=== PATIENT | female | born 1960 | race Caucasian/White ===

== ENCOUNTER 2023-02-28 08:56 | Outpatient (CLI) | payer OTHER, SELFPAY ==
--- NOTE | ~2023-02-28 | XR_ITS ---
EXAMINATION: XR chest 2V 02/28/2023 09:15 INDICATION: Cough PROCEDURE: 2 view chest COMPARISON: 12/05/2013 FINDINGS: The lungs are clear. The cardiomediastinal silhouette is within normal limits. There are no pleural effusions. There is no pneumothorax suspected. There is scoliosis. There are cholecystec sheldon clips. IMPRESSION: 1: NO ACUTE CARDIOPULMONARY DISEASE. Reviewed, dictated and finalized at location B. CAL LIAISON
--- NOTE | ~2023-02-28 | MM_ITS ---
EXAMINATION: MM screening queenie BI w letha HISTORY: Screening mammogram TECHNIQUE: Craniocaudal and mediolateral oblique 3-D tomosynthesis images were obtained and synthetic 2-D images were generated. CAD analysis was submitted and interpreted. COMPARISON: No prior mammogram is available for comparison at this institution. BREAST PARENCHYMAL COMPOSITION: The breasts are almost entirely fatty. FINDINGS: An intramammary lymph node is noted in the upper outer quadrant of the right breast. No jackelyn picious mass, calcification, or architectural distortion are identified in either breast to suggest m alignancy. IMPRESSION: 1. No mammographic evidence of malignancy. 2. Recommend routine screening mammography in one year. BI-RADS Category 2: Benign finding(s). Reviewed, dictated and finalized at location A. ER ENAMELING
== END 2023-02-28 08:57 | disposition home or self-care (01) ==
PROVIDERS: PCP Emergency Medicine; Visit Provider Emergency Medicine
DX: Z12.31 Encounter for screening mammogram for malignant neoplasm of breast (principal); R05.9 Cough, unspecified
CPT/HCPCS: 71046; 77063; 77067

== ENCOUNTER 2023-10-05 16:00 | Emergency (ER) | payer OTHER, SELFPAY ==
--- NOTE | ~2023-10-05 | XR_ITS ---
EXAMINATION: XR toe 5th LT min 2V DATE: 10/05/2023 16:40 INDICATION: Left fifth toe injury. TECHNIQUE: 4 views of left fifth toe were obtained. COMPARISON: None. FINDINGS: Alignment is normal. There is ankylosis of fifth middle and distal phalanges. There is a ch ip fracture of plantar base of fifth middle phalanx. Joint spaces are normal. IMPRESSION: 1. Chip fracture of the plantar base of fifth middle phalanx. Reviewed, dictated and finalized at location A.
[2023-10-05 16:19] VITALS: BP 148/83; PULSE 72; RESP 16; TEMP 36.7; O2SAT 99
--- NOTE | 2023-10-05 16:19 | ED.LOWEXIN ---
HPI - Extremity Injury (Lower) General Chief Complaint: Extremity Injury, Lower Stated Complaint: lt foot toe injury Time Seen by Provider: 10/05/23 16:25 Source: patient and RN notes reviewed Mode of arrival: ambulatory Limitations: no limitations History of Present Illness HPI Narrative: 8-year-old female presents concern for injury to the 5th digit of her right foot. Reports today works she dropped a case of water on the foot. She reports pain at the 5th digit and extending below the 5th digit. She reports pain at rest, worse pain with weight-bearing. Reports difficulty bending MD complaint: foot injury Related Data Home Medications Medication Instructions Recorded Confirmed amlodipine 10 mg tablet 10 mg PO DAILY 10/05/23 10/05/23 hydrochlorothiazide 25 mg tablet 25 mg PO DAILY 10/05/23 10/05/23 paroxetine HCl 20 mg tablet 20 mg PO DAILY 10/05/23 10/05/23 rosuvastatin 5 mg tablet 5 mg PO HS 10/05/23 10/05/23 Allergies Allergy/AdvReac Type Severity Reaction Status Date / Time No Known Allergies Allergy Verified 10/05/23 16:15 Review of Systems Review of Systems: CONSTITUTIONAL: Denies malaise, chills, sweats, or fever. SKIN: Denies rash or itching, open skin, laceration, abrasion, redness, warmth, swelling. MUSCULOSKELETAL: Reports pain and bruising in the 5th digit of the left foot NEUROLOGIC: Denies numbness, weakness All systems reviewed & are unremarkable except as noted in HPI and below PMFSH Comments At time of signature, agree with nursing past medical, surgical, social and family history. There is no relevant family history pertinent to the presenting complaint Exam Narrative: GENERAL: Well-appearing, well-nourished, and in no acute distress. HEAD: Normocephalic, atraumatic. EYES: PERRLA, conjunctivae clear NECK: Supple. CHEST: Speaks in full sentences. No respiratory distress. HEART: Regular rate and rhythm. Normal and equal peripheral pulses. EXTREMITIES: 5th digit of left foot has gross normal strength and sensation, limited range of motion. No edema. Ecchymosis noted at the base of the digit. Normal sensation with sensitivity to light touch and pain. General digit tenderness. No open wounds, no skin tenting, no devitalized tissue or atrophy, no trophic changes, no obvious deformity, alignment normal, nearby joints and structures intact. Distal pulses palpable and equal bilaterally, skin warm, dry, pink. Capillary refill less than 3 seconds. SKIN: Warm, dry, no rash. NEURO: Alert and oriented x3. PSYCH: Normal mood and affect Course Course Emergency Course: Patient is aware of diagnosis, understands and agrees to treatment plan. Anticipatory guidance given. Patient agrees to follow-up as directed and is aware of reasons to seek care at the emergency department. Portions of this record may have been created with voice recognition software Level of Care: Express Care Visit Vital Signs Vital signs: Reviewed. MDM - Extremity Injury (Lower) MDM Narrative Medical decision making narrative: Patients injury and pain is consistent with musculoskeletal etiology. No signs of neurological or vascular compromise on exam. Compartments and tissues are soft without signs of compartment syndrome. Pain is felt appropriate for further evaluation on an outpatient basis. Imaging Data My impression: Images reviewed, interpreted by radiologist, agree, see report. Radiologist's impression: EXAMINATION: XR toe 5th LT min 2V DATE: 10/05/2023 16:40 INDICATION: Left fifth toe injury. TECHNIQUE: 4 views of left fifth toe were obtained. COMPARISON: None. FINDINGS: Alignment is normal. There is ankylosis of fifth middle and distal phalanges. There is a chip fracture of plantar base of fifth middle phalanx. Joint spaces are normal. IMPRESSION: 1. Chip fracture of the plantar base of fifth middle phalanx. Critical Care Time Critical Care Time Critical Care Time: No Discharge Plan D
== END 2023-10-05 17:05 | disposition home or self-care (01) ==
PROVIDERS: Emergency Provider Nurse Practitioner; PCP Emergency Medicine
DX: S92.522A Displaced fracture of middle phalanx of left lesser toe(s), initial encounter for closed fracture (principal); W20.8XXA Other cause of strike by thrown, projected or falling object, initial encounter; Y99.0 Civilian activity done for income or pay; E78.00 Pure hypercholesterolemia, unspecified; I10 Essential (primary) hypertension; F41.9 Anxiety disorder, unspecified; F32.A Depression, unspecified
CPT/HCPCS: 73660; 99214; G0463

== ENCOUNTER 2024-03-19 13:45 | Outpatient (CLI) | payer OTHER, SELFPAY ==
--- NOTE | ~2024-03-19 | XR_ITS ---
AP view of the pelvis and AP and lateral views of the bilateral hips Clinical history: Pain Findings: No acute fracture or dislocation is seen. Probable chronic fracture fragment versus heterot opic ossification at the superior aspect of the right greater trochanter. Osseous alignment is anatom ic. Bilateral hip and SI joint spaces are preserved. Soft tissues are unremarkable. Impression: No acute abnormality. Chronic fracture fragment versus heterotopic ossification at the superior aspect of the right greater trochanter. Reviewed, dictated and finalized at location . S INSTALLER Impression: No acute abnormality. Chronic fracture fragment versus heterotopic ossification at the superior aspec t of the right greater trochanter.
--- OUTSIDE RECORDS SUMMARY | 2024-03-19 13:59 | XMS_ITS | Referral Summary ---
Author Organization [facility] Address [address] [place] [address] Care Team Providers Care Agricultural Education Instructor Name Role Phone Constantin Lima MD Primary Care Provider [phone] Encounters Date Type Department Care Team Description 01/26/2024 Telephone [facility] Obstetrics and Gynecology [address] [place] [address] [place] [address] Ivania Galvan RN Test Results 01/20/2024 9:36 AM VALVER - 01/20/2024 11:59 PM [facility] Hospital Encounter 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 before breakfast 4 Active PARoxetine (PAXIL) 20 mg tabletIndicatio ns:Generalized Anxiety Disorder Take 1 tablet (20 mg total) by mouth every morning 4 Active rosuvastatin (CRESTOR) 5 mg tabletIndicatio ns:hyperlipidem ia Take 1 tablet (5 mg total) by mouth every evening 4 Active hydroCHLOROthia zide (HYDRODIURIL) 25 mg tabletIndicatio ns:hypertension Take 1 tablet (25 mg total) by mouth nightly 4 Active multivitamin tabletIndicatio ns:Vitamin Deficiency Prevention Take 1 tablet by mouth nightly Active fluticasone propionate (FLONASE) 50 mcg/actuation nasal spray USE 1 SPRAY(S) IN EACH NOSTRIL TWICE DAILY 4 Active promethazine (PHENERGAN) 25 mg tablet TAKE 1/2 (ONE-HALF) TABLET BY MOUTH EVERY 6 HOURS NEEDED FOR NAUSEA 4 Active GaviLyte-N 420 gram solution TAKE DIRECTED BY OFFICE 4 Active valACYclovir (VALTREX) 1 gram tablet TAKE 2 TABLETS BY MOUTH TWICE DAILY FOR ONE DAY AT ONSET. 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 Check path on vaginal cuff lesion though appearance is consistent with suture granuloma. Surveillance every 6 months for 2 years, then yearly. Instructions and precautions given. 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 Doing well postop. Surveillance every 6 months for 2 years, then yearly. Ok to return to work with limited activity. Return to normal activities in 2 weeks. Instructions and precautions given. 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 Recommendation is for observation. Surveillance every 6 months for 2 years, then yearly. Doing well postop. Return to clinic for final postop with vaginal cuff check. Instructions and precautions given. Assessment & Plan (05/09/2023 4:58 PM CDT): Endometrioid adenocarcinoma, FIGO grade 2, p53 positive. CT chest/abdomen/pelvis. Robotic-assisted hysterectomy/BSO/SLND/Omental biopsy. CPAP. Preop medical evaluation. Mixed anxiety and depressive disorder 03/27/2023 Hypertension 02/14/2023 Hypertriglyceridemia 02/14/2023 Tobacco dependence syndrome 02/14/2023 Assessment & Plan (01/20/2024 2:14 PM VALVER): Continues to smoke 1ppd (>40-years). Not yet ready to quit but contemplating. Follow up with PCP. Assessment & Plan (05/09/2023 4:59 PM CDT): Smokes 1ppd (>40-years). Not yet ready to quit. Encouraged reducing amount perioperatively. Follow up with PCP. Social History Tobacco Use Types Packs/Day Years Used Date Smoking Tobacco: Every Day Cigarettes 1 44.9 Started: 05/09/1979 Smokeless Tobacco: Never Tobacco Cessation:Ready to Q uit: Not Asked; Counseling Given: Not Answered AUDIT-C Answer Date Recorded Q1: How often do you have a drink containing alcohol? Never 06/23/2023 Q2: How many drinks containi ng alcohol do you have on a typical day when you are drinking? Patient does not drink Frequency of Binge Drinking Not on file 06/07 Personal Safety Answer Date Recorded Have you ever been in or are you currently in a harmful physical or emotional relationship or is someone making you feel afraid or unsafe? Denies 06/23/2023 Comments Unknown Sex and Gender Information Value Date Recorded Sex Assigned at Not on file Legal Sex Female 6:01 PM VALVER Gender Identity Female 05/10/2023 1:35 PM CDT Sexual Orientation Straight 05/10/2023 1: 35 PM CDT Last Filed Vital Signs Vital Sign Reading Time Taken Comments Blood Pressure 137/80 01/20/2024 1:54 PM [facility] Pulse 76 01/20/2024 1:54 PM [facility] Temperature 36.8 C (98.2 F) 01/20/2024 1:54 PM VALVER Respiratory Rate 16 01/20/2024 1:54 PM VALVER Oxygen Saturation 96% 01/20/2024 1:54 PM [facility]VER Inhaled Oxygen Concentration - - Weight 76.6 kg (168 lb 12.8 oz) 01/20/2024 1:54 PM [facility] Height 154.9 cm (5' 0.98 ) 01/20/2024 1:54 PM CS T Body Mass Index 31.91 01/20/2024 1:54 PM VALVER Plan of Treatment Not on file Procedures Procedure Name Priority Date/Time Associated Diagnosis Comments SURGICAL PATHOLOGY Routine 01/20/2024 12 :00 AM VALVER Endometrial cancer (CMS/HCC) (HCC) from Last 3 Months Results * Surgical pathology (01/20/2024 12:00 AM [facility]) Tissue (Vagina, Biopsy) 01/20/2024 01/23/2024 4:19 AM VAL[facility] Narrative PATHOLOGY [facility] - 01/24/2024 12:30 PM [facility] EPIC results best viewed via link to PDF [facility] [place] [address] Note to Patients: This report may contain a detailed description of human tissue sent by a health care provider to the laboratory for pathologic evaluation. The content of this report is essential for diagnosis and may provide important critical findings. This information may be unfamiliar to patients to review without a medical professional present. It is advised that the patient review this report in the presence of a health care provider who can answer questions and explain the details. SURGICAL PATHOLOGY REPORT FINAL Patient Name: DAI CRUZ Gender: F : 1960 (Age: 63) Address: [address] [place] [id number] [facility] #: [id number] Taken:01/20/2024 Received:01/23/2024 Reported: 01/24/2024 Patient Type: [facility] SPECIMEN Service: Obstetrics Location: Physician(s): Johana Fitzpatrick M.D. Diagnosis: Vaginal cuff, biopsy - Inflamed granulation tissue with a foreign body reaction - No evidence of dysplasia or malignancy av/01/24/2024 07:53 By this signature, I attest that the above diagnosis is based upon my personal examination of the slides(and/or other material indicated in the diagnosis). Eric Lopez M.D., Ph.D. Report Electronically Reviewed and Signed Out By Eric Lopez M.D., Ph.D. 01/24/2024 12:30:23 Microscopic Description and Comment: Microscopic examination substantiates the above cited diagnosis. Ely Mendiola M.D. History: The patient is a 63-year-old woman with history of endometrial cancer status post hysterectomy, now with a vaginal cuff lesion. Operative procedure: Vaginal cuff biopsy. Specimen(s) Received: A: Vaginal cuff Gross Description: Received in formalin, labeled with the patient s identifiers and vaginal cuff , are multiple black-brown fragments of soft tissue with an aggregate measurement of 0.6 x 0.5 x 0.1 cm. Labeled A1. Jar 0. elsw/01/23/2024 11:12 PA(s): Jessica Hyatt By this signature, I attest that the above diagnosis is based upon my personal examination of the slides(and/or other material). Addenda/Procedures The performance characteristics of some immunohistochemical stains, fluorescence in-situ hybridization tests and immunophenotyping by flow cytometry cited in this report (if any) were determined by the Surgical Pathology and Flow Cytometry Departments at [facility] as part of an ongoing quality consultant program and in compliance with federally mandated regulations drawn from the Clinical Laboratory Improvement Act of 1988 (CLIA '88). Some of these tests rely on the use of analyte specific reagents and are subject to specific labeling requirements by the US Food and Drug Administration. Such diagnostic tests may only be performed in a facility that is certified by the Department of Health and Human Services as a high complexity laboratory under CLIA '88. The FDA has determined that such clearance or approval is not necessary. This test is used for clinical purposes. It should not be regarded as investigational or for research. Nevertheless, federal rules concerning the medical use of analyte specific reagents require that the following disclaimer be attached to the report: This test was developed and its performance characteristics determined by the Surgical Pathology and Flow Cytometry Departments of [facility]. It has not been cleared or approved by the U. S. Food and Drug Administration. IMAGES AND SCANNED DOCUMENTS, IF INCLUDED, ONLY VIEWABLE IN PDF VERSION OF REPORT us Johana Fitzpatrick MD LAB PATHOLOGY ORDERABLES Final Result PATHOLOGY [facility] [address] [place], [place] [phone] from Last [address] [place] [address] [facility] H[facility]/PPO Address: [address] [address] [place] [address] [facility] CHOICE PLUS [facility] HMO/PPO Address: [address] [address] [place] [address] Care Teams Agricultural Education Instructor Relationship Specialty Start Date End Date Constantin Lima MD [address] [place] [address] PCP - General Obstetrics and Gynecology 05/09/23
--- OUTSIDE RECORDS SUMMARY | 2024-03-19 13:59 | XMS_ITS | Clinical Summary ---
Author Organization [facility] Address [address] [place] [address] Care Team Providers Care Director Immunology Name Role Phone None, Provider MD Primary Care Provider Unavaila ble Allergies No known active allergies Medications No known medications Social History Tobacco Use Types Packs/Day Years Used Date Smoking Tobacco: Every Day Cigarettes Smokeless Tobacco: Never Alcohol Use Standard Drinks/Week Comments Never 0 (1 standard drink = 0.6 oz pur e alcohol) Comments No Sex and Gender Information Value Date Recorded Sex Assigned at Not on file Legal Sex Female 6:42 PM CDT Gender Identity Not on file Sexual Orientation Not on file Last Filed Vital Signs Vital Sign Reading Time Taken Comments Blood Pressure 180/90 05/20/2021 4:29 PM CDT Pulse 88 05/20/2021 3:43 PM CDT Temperature 36.5 C (97.7 F) 05/20/2021 3:43 PM CDT Respiratory Rate 22 05/20/2021 3:43 PM CDT Oxygen Saturation 97% 05/20/2021 3:43 PM CDT Inhaled Oxygen Concentration - - Weight 77.1 kg (170 lb) 05/20/2021 3:43 PM CDT Height 154.9 cm (5' 1 ) 05/20/2021 3:43 PM CDT Body Mass Index 32.12 05/20/2021 3:43 PM CDT Plan of Treatment Health Maintenance Due Date Last Done Comments Cervical Cancer Screening Pa p Smear (Age 30 to 64) Every 3 Years 1960 Colorectal Cancer Screening Colonoscopy (10 Years) 1962 Annual Physical 1965 Pneumococcal Vaccine: Pediat rics (0 to 5 Years) and At-Risk Patients (6 to 64 Years) (1 of 2 - PCV) 1968 Hepatitis C 1980 DTaP, Tdap and Td Vaccines ( 1 - Tdap) 1981 Cervical Cancer Screening Pa p with HPV Testing (Age 30 to 64) Every 5 Years 1992 Cervical Cancer Screening with HPV 1992 Mammogram Screening 2002 Zoster Vaccines (1 of 2) 2012 COVID-19 Vaccine ( - 2023-2 5 season) 2023 Influenza Adult (#1) 2023 RSV Immunization or 60+ Years (1 - 1-dose 75+ series) 2037 Meningococcal B Vaccine Aged Out No l onger eligible based on patient's age to complete this topic Meningococcal Vaccine Aged Out No amarilis jeny eligible based on patient's age to complete this topic RSV Immunizations Under 20 Months Aged Out No longer eligible based on patient's age to complete [place] [address] [employer] Care Teams Director Immunology Relationship Specialty Start Date End Date None, Provider, PCP - General 05/20/21
--- OUTSIDE RECORDS SUMMARY | 2024-03-19 13:59 | XMS_ITS | Continuity of Care Document ---
Author Name [facility] Organization [facility] Care Team Providers Care Beet Topper Name Role Phone [facility] Unavailable Unavailable Encounters Combined list of: 1) Encounters from Department of Veterans Affairs facilities going backup to the last 18 months, not all VA inpatient encounters are included; 2) Encounters from the Department of Defense facilities going backup to 280 months. Location Location Details Encounter Type Encounter Number Reason For Visit Attending Provider ADM Date DC Date Status Disposition Source [facility] Outpatient Encounter [id number] 6 08/14 [facility] [place]
--- OUTSIDE RECORDS SUMMARY | 2024-03-19 13:59 | XMS_ITS | Clinical Summary ---
Author Organization [facility] Address [facility] [place] [address] Care Team Providers Care Rattlesnake Farmer Name Role Phone Constantin Lima MD Primary Care Provider [phone] Allergies No known active allergies Medications amLODIPine (NORVASC) 10 mg tabletIndicatio ns:hypertension Take 1 tablet (10 mg total) by mouth image processing engineer before breakfast 4 Active PARoxetine (PAXIL) 20 [...] AT ONSET OF SYMPTOMS THROUGH THE MONTHS Active Active Problems Problem Noted Date Diagnosed Date Cardiac murmur 10/31/2023 Endometrial cancer (CMS/HCC) 05/09/2023 Cancer Staging:Clinical stage from 06/23/2023:FIGO Stage IA(cT1a, cN0, cM0) - Signed by Johana Fitzpatrick MD on 07/08/2023 Assessment & Plan (01/20/2024 2:16 PM CUP SETTER LOCKSTITCH): 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 Not yet ready to quit but contemplating. Follow up with PCP. Assessment & Plan (05/09/2023 4:59 PM CDT): Smokes 1ppd (>40-years). Not yet ready to quit. Encouraged reducing amount perioperatively. Follow up with PCP. Encounters Date Type Department Care Team Description 01/26/2024 Telephone [facility] Obstetrics and Gynecology [address] [facility] 13th [place] [address] Ivania Galvan RN Test Results 01/20/2024 1:30 PM CUP SETTER LOCKSTITCH Office Visit [facility] Obstetrics and Gynecology [address] [facility] 13th [place] [address] Johana Fitzpatrick MD Endometrial cancer (CMS/HCC) (HCC) (Primary Dx) 01/20/2024 9:36 AM CUP SETTER LOCKSTITCH - 01/20/2024 11:59 PM CUP SETTER LOCKSTITCH Hospital Encounter [facility] [address] [facility] 3rd [place] [address] Endometrial cancer (CMS/HCC) (HCC) Discharge Disposition: Discharge to home or self care from Last 3 Months Surgical History Surgery Date Site/Laterality Comments SECTION CHOLECYSTECTOMY TONSILLECTOMY AND ADENOIDECTOMY Medical History Medical History Date Comments High blood pressure High cholesterol Delayed emergence from gener al anesthesia w/ cholecystectomy ~20 years ago - no ICU or reintubation required, but had to stay overnight unexpectedly Family History Medical History Relation Name Comments Colon cancer Mother Heart attack Son onset age 30s Anesthesia problems Neg Hx Relation Name Status Comments Mother Son Alive Social History Tobacco Use Types Packs/Day Years [...] on file Legal Sex Female 6:01 PM CUP SETTER LOCKSTITCH Gender Identity Female 05/10/2023 1:35 PM CDT Sexual Orientation Straight 05/10/2023 1: 35 PM CDT Obstetrics History Para Term AB IAB SAB Ectopic Multiple Livin g Live Births 3 2 2 1 1 Date Outcome GA Total Labor Labor/2nd/3rd Weight Sex Type Anes PTL Sherri A1 A5 Name Clin Term Term SAB Last Filed Vital Signs Vital Sign Reading Time Taken Comments Blood Pressure 137/80 01/20/2024 1:54 PM CUP SETTER LOCKSTITCH Pulse 76 01/20/2024 1:54 PM CUP SETTER LOCKSTITCH Temperature 36.8 C (98.2 F) 01/20/2024 1:54 PM CUP SETTER LOCKSTITCH Respiratory Rate 16 01/20/2024 1:54 PM CUP SETTER LOCKSTITCH Oxygen Saturation 96% 01/20/2024 1:54 PM CUP SETTER LOCKSTITCH Inhaled Oxygen Concentration - - Weight 76.6 kg (168 lb 12.8 oz) 01/20/2024 1:54 PM CUP SETTER LOCKSTITCH Height 154.9 cm (5' 0.98 ) 01/20/2024 1:54 PM CS T Body Mass Index 31.91 01/20/2024 1:54 PM CUP SETTER LOCKSTITCH Plan of Treatment Health Maintenance Due Date Last Done Comments Breast Cancer Screening-Mammogram 1960 Cervical Cancer Screening 1960 Colon Cancer Screening-Colonoscopy 1960 Depression Screening 1960 Hepatitis C Screening 1962 Pneumococcal vaccine <65 (1 of 2 - PCV) 1968 DTaP/Tdap/Td Vaccine (1 - Tdap) 1973 Hepatitis B Screening 1980 Regular Well Visit/Exam 18-64 1980 Lung Cancer Screening 2012 Zoster Vaccine (1 of 2) 2012 Influenza Vaccine (#1) 2023 Procedures Procedure Name Priority Date/Time Associated Diagnosis Comments SURGICAL PATHOLOGY Routine 01/20/2024 12 :00 AM CUP SETTER LOCKSTITCH Endometrial cancer (CMS/HCC) (HCC) from Last 3 Months Results * Surgical pathology (01/20/2024 12:00 AM CUP SETTER LOCKSTITCH) Tissue (Vagina, Biopsy) 01/20/2024 01/23/2024 4:19 AM CUP SETTER LOCKSTITCH Narrative PATHOLOGY [facility] - 01/24/2024 12:30 PM CUP SETTER LOCKSTITCH EPIC results best viewed via link to PDF [facility] [place] [address] Note to Patients: This report may contain [...] Gender: F : 1960 (Age: 63) Address: [address] [place], [place] [id number] [facility] #: [id number] Taken:01/20/2024 Received:01/23/2024 Reported: 01/24/2024 Patient Type: [facility] SPECIMEN Service: Obstetrics Location: Physician(s): Johana Fitzpatrick M.D. Diagnosis: Vaginal cuff, biopsy - Inflamed granulation tissue with a foreign body reaction - No evidence of dysplasia or malignancy av01/24/2024 07:53 By this signature, I attest that [...] x 0.1 cm. Labeled A1. Jar 0. 01/23/2024 11:12 PA(s): Jessica Hyatt By this signature, I attest that the above diagnosis is based upon my personal examination of the slides(and/or other material). Addenda/Procedures The performance characteristics of some immunohistochemical stains, fluorescence in-situ hybridization tests and immunophenotyping by flow cytometry cited in this report (if any) were determined by the Surgical Pathology and Flow Cytometry Departments at [facility] as part of an ongoing quality control manager program and in compliance with federally mandated [...] Surgical Pathology and Flow Cytometry Departments of [facility]. It has not been cleared or approved by the U. S. Food and Drug Administration. IMAGES AND SCANNED DOCUMENTS, IF INCLUDED, ONLY VIEWABLE IN PDF VERSION OF REPORT us Johana Fitzpatrick MD LAB PATHOLOGY ORDERABLES Final Result PATHOLOGY [facility] 3rd Floor [place], [place] [phone] from Last 3 Months Insurance [facility] CHOICE PLUS Care Teams Rattlesnake Farmer Relationship Specialty Start Date End Date Constantin Lima MD [address] [place] [address] PCP - General Obstetrics and Gynecology 05/09/23
--- OUTSIDE RECORDS SUMMARY | 2024-03-19 13:59 | XMS_ITS ---
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 Not yet ready to quit but contemplating. Follow up with PCP. Assessment & Plan (05/09/2023 4:59 PM CDT): Smokes 1ppd (>40-years). Not yet ready to quit. Encouraged reducing amount perioperatively. Follow up with PCP. Current Oncology Plans No current plan information found. Past Plans No past plan information found. Radiation Treatments * No radiation treatments are documented for this patient in [facility]. Treatments may have been administered in another system. Lifetime Dose Tracking * Chemical Lifetime Dose Automatic Entry Manual Entr y DLP 569 mGycm 569 mGycm 0 mGycm
--- OUTSIDE RECORDS SUMMARY | 2024-03-19 13:59 | XMS_ITS | CONTINUITY OF CARE DOCUMENT ---
Author Name dickson forman Address Unknown Organization [facility] Address [address] [facility] [address] [place] [address] Phone [phone] Care Team Providers Care Jinrikisha Driver Name Role Phone Honorio Tirado MD Unavailable [phone] FILIPPO ESTEVES MD Unavailable [phone] FILIPPO ESTEVES MD Unavailable [phone] PROBLEMS Condition Status Date Provider Notes Cardiology examination active Honorio Tirado MD Hypertension active Honorio Tirado MD Hypertriglyceridemia active Honorio Tirado MD Tobacco abuse active Honorio Tirado MD Diabetes mellitus? active Honorio Tirado MD Cardiac murmur active Honorio Tirado MD ENCOUNTERS Date Type Provider Location Encounter Diag nosis 10/30 - 10/30 In-person encounter Office Visit Honorio Tirado MD [facility] Cardiac murmur 05/01 - 05/01 In-person encounter Office Visit Honorio Tirado MD [facility] 02/14 - 02/14 In-person encounter Office Visit Honorio Tirado MD [facility] Cardiology examinationHypertensionHypertriglyceridemiaTobacco abuseDiabetes mellitus? VITAL SIGNS Date Observation Value Provider Body Mass Index (Ratio) 30.98 kg/m2 Roxi Tirado MD blood pressure, cuff size regular Ke rri Gruenenfelder blood pressure, diastolic 86 mm[Hg] Pradeep rri Gruenenfelder blood pressure, systolic 146 mm[Hg] Denny Jaimeelder oxygen saturation, oximetry 98 % Carol Carboneer respiratory rate E&M 12 /min Carol traceyelder pulse rate 70 /min Carol Del Castillo er weight E&M 164 [lb_av] Carol Del Castillo height E&M 61 [in_i] Carol Del Castillo Body Mass Index (Ratio) 30.61 kg/m2 Roxi Tirado MD blood pressure, cuff size regular Ja rret blood pressure, diastolic 95 mm[Hg] Ja rret blood pressure, systolic 156 mm[Hg] Jar ret pulse rate 68 /min Idris respiratory rate E&M 16 /min Idris oxygen saturation, oximetry 96 % Idris weight E&M 162 [lb_av] Idris y height E&M 61 [in_i] Idris y Body Mass Index (Ratio) 30.98 kg/m2 Roxi Tirado MD blood pressure, diastolic 95 mm[Hg] Isabel [facility]Logic blood pressure, systolic 153 mm[Hg] Yelena kLogic blood pressure, cuff size regular Ja rret blood pressure, diastolic 95 mm[Hg] Ja rret blood pressure, systolic 153 mm[Hg] Jar ret pulse rate 70 /min Idris y height E&M 61 [in_i] Idris Sandra y respiratory rate E&M 12 /min oxygen saturation, oximetry 99 % weight E&M 164 [lb_av] Idris Sandra y ALLERGIES Allergy Name Onset Date Reaction Criticality Status SEASONAL Low Criticality active RESULTS Date Observation Value Provider Reference Range Interpretation Location 4 alanine aminotransferase (SGPT), serum 13 1/L [facility] 6-29 Normal 4 aspartate aminotransferase (SGOT), serum 18 1/L [facility] 10-35 Normal 4 alkaline phosphatase, serum 81 1/L [facility] 37-153 Normal 4 bilirubin, serum, total 0.6 mg/dL [facility] 0.2-1.2 Normal 4 albumin/globulin ratio, serum 1.9 (calc) [facility] 1.0-2.5 Normal 4 globulins, serum, total 2.2 G/DL (CALC) [facility] 1.9-3.7 Normal 4 albumin, serum 4.1 g/dL [facility] 3.6-5.1 Normal 4 protein, total, serum 6.3 g/dL [facility] 6.1-8.1 Normal 4 calcium, serum 9.5 mg/dL [facility] 8.6-10.4 Normal 4 carbon dioxide, venous blood 31 mmol/L [facility] 20-32 Normal 4 chloride, serum 104 mmol/L [facility] 98-110 Normal 4 potassium, serum 4.0 mmol/L [facility] 3.5-5.3 Normal 4 sodium, serum 143 mmol/L [facility] 135-146 Normal 4 urea nitrogen/creatinine ratio, serum SEE NOTE: (calc) [facility] 6-22 4 creatinine, serum 0.76 mg/dL [facility] 0.50-1.05 Normal 4 urea nitrogen, blood 14 mg/dL [facility] 7-25 Normal 4 blood glucose, random 97 mg/dL [facility] 65-99 Normal 4 cholesterol, non-HDL, total 111 MG/DL (CALC) [facility] <130 Normal 4 cholesterol/HDL ratio, serum, percent 3.3 (calc) [facility] <5.0 Normal 4 LDL cholesterol, serum 87 MG/DL (CALC) [facility] Normal 4 triglyceride, serum, fasting 141 mg/dL [facility] <150 Normal 4 HDL cholesterol, serum 48 mg/dL [facility] > OR = 50 Low 4 cholesterol, serum 159 mg/dL [facility] <200 Normal 2 alanine aminotransferase (SGPT), serum 18 1/L [facility] 6-29 Normal 2 aspartate aminotransferase (SGOT), serum 23 1/L [facility] 10-35 Normal 2 alkaline phosphatase, serum 89 1/L [facility] 37-153 Normal 2 bilirubin, serum, total 0.9 mg/dL [facility] 0.2-1.2 Normal 2 albumin/globulin ratio, serum 2.0 (calc) [facility] 1.0-2.5 Normal 2 globulins, serum, total 2.3 G/DL (CALC) [facility] 1.9-3.7 Normal 2 albumin, serum 4.6 g/dL [facility] 3.6-5.1 Normal 2 protein, total, serum 6.9 g/dL [facility] 6.1-8.1 Normal 2 calcium, serum 9.8 mg/dL [facility] 8.6-10.4 Normal 2 carbon dioxide, venous blood 28 mmol/L [facility] 20-32 Normal 2 chloride, serum 104 mmol/L [facility] 98-110 Normal 2 potassium, serum 4.0 mmol/L [facility] 3.5-5.3 Normal 2 sodium, serum 141 mmol/L [facility] 135-146 Normal 2 urea nitrogen/creatinine ratio, serum SEE NOTE: (calc) [facility] 6- 2 creatinine, serum 0.75 mg/dL [facility] 0.50-1.05 Normal 2 urea nitrogen, blood 10 mg/dL [facility] 7-25 Normal 2 blood glucose, random 96 mg/dL [facility] 65-99 Normal 2 cholesterol, non-HDL, total 123 MG/DL (CALC) [facility] <130 Normal 2 cholesterol/HDL ratio, serum, percent 3.3 (calc) [facility] <5.0 Normal 2 LDL cholesterol, serum 91 MG/DL (CALC) [facility] Normal 2 triglyceride, serum, fasting 218 mg/dL [facility] <150 High 2 HDL cholesterol, serum 53 mg/dL [facility] > OR = 50 Normal 2 cholesterol, serum 176 mg/dL [facility] <200 Normal 4 hemoglobin A1C, blood, as % of total hemoglobin 5.5 % OF TOTAL HGB [facility] <5.7 Normal 4 calcium, serum 9.5 mg/dL [facility] 8.6-10.4 Normal 4 carbon dioxide, venous blood 27 mmol/L [facility] 20-32 Normal 4 chloride, serum 106 mmol/L [facility] 98-110 Normal 4 potassium, serum 4.1 mmol/L [facility] 3.5-5.3 Normal 4 sodium, serum 141 mmol/L [facility] 135-146 Normal 4 urea nitrogen/creatinine ratio, serum SEE NOTE: (calc) [facility] 6- 4 creatinine, serum 0.70 mg/dL [facility] 0.50-1.05 Normal 4 urea nitrogen, blood 13 mg/dL [facility] 7-25 Normal 4 blood glucose, random 103 mg/dL [facility] 65-99 High HISTORY OF MEDICATION USE Medication Status Instructions Dates Provider Indications Com ments bupropion HCl 150 mg tablet sustained-release 12 hr active Honorio Tirado MD losartan 50 mg tablet completed TAKE 1 TAB LET BY MOUTH ONCE DAILY - Honorio Tirado MD hydrochlorothiazide 25 mg tablet active Take 1 tablet by mouth once a day Hoonrio Tirado MD rosuvastatin 5 mg tablet active TAKE 1 TABLET BY MOUTH EVERY EVENING OR AT BEDTIME DAILY Honorio Tirado MD paroxetine HCl 20 mg tablet active TAKE 1 TABLET BY MOUTH ONCE DAILY IN THE MORNING Idris amlodipine 10 mg tablet active Take 1 tablet by mouth once a day Honorio Tirado MD fenofibrate micronized 134 mg capsule completed TAKE 1 CAPSULE BY MOUTH ONCE DAILY WITH A MEAL - Honorio Tirado MD SOCIAL HISTORY Date Observation Value Provider alcohol use no Honorio Tirado MD smoking history, total pack/day 1 Honorio Tirado MD cigarette use yes Honorio Prasad smoking status Current every day smoker Joann Tirado MD alcohol use no Honorio Tirado MD smoking history, total pack/day 1 Honorio Tirado MD cigarette use yes Honorio Prasad smoking status Current every day smoker Joann Tirado MD alcohol use no Honorio Tirado MD smoking history, total pack/day 1 Idris walker cigarette use yes Idris florez smoking status Current every day smoker J walter INSURANCE PROVIDERS Payer name Policy type / Coverage type [place] [employer] ID [id number] Commercial insurance [facility] [id number] ADVANCE DIRECTIVES Name Date DISCUSSED - NO DECISION MADE TREATMENT PLAN Date Name Performer Cardiology:This visi t has been a part of the consistent, comprehensive, and ongoing management of the chronic medical condition(s) listed above for the patient. H er updated medication list for this problem includes: Amlodipine 10 Mg Tablet (Amlodipine) ..... Take 1 tablet by mouth once a day Hydrochlorothiazide 25 Mg Tablet (Hydrochlorothiazide) ..... Take 1 tablet by mouth once a day BP today: 146/86 P rior BP: 156/95 (05/02/2023) Labs Reviewed: C reat: 0.75 (04/19/2023) C hol: 176 (04/19/2023) HDL: 53 (04/19/2023) LDL: 91 MG/DL (CALC) (04/19/2023) T (04/19/2023) Honorio Tirado MD Cardiology:check ech o 2 /6 LA Honorio Tirado MD Cardiology:She has d one well modifying her diet E ncouraged further reduction in her carbohydrate intake TG improved to 218, improved from >400 Honorio Tirado MD Cardiology: A 1c is 5.4% Honorio Tirado MD Cardiology:The Patient was reenc ouraged to stop smoking. Honorio Tirado MD Cardiology:A1c is 5.4% Honorio tineo MD Cardiology:Start HCT Z 25mg once daily H er updated medication list for this problem includes: Hydrochlorothiazide 25 Mg Tablet (Hydrochlorothiazide) ..... Take 1 tablet by mouth once a day Amlodipine 10 Mg Tablet (Amlodipine) ..... Take 1 tablet by mouth once daily BP today: 156/95 P rior BP: 153/95 (02/14/2023) Labs Reviewed: C reat: 0.75 (04/19/2023) C hol: 176 (04/19/2023) HDL: 53 (04/19/2023) LDL: 91 MG/DL (CALC) (04/19/2023) T (04/19/2023) Honorio Tirado MD Cardiology:TG imrpoved to 218, i mproved from >400 Honorio Tirado MD Cardiology:will check insulin le vels and A1c Honorio Tirado MD Cardiology:The Patie nt was reencouraged to stop smoking. 1 ppd for 40 years Honorio Tirado MD Cardiology: H er updated medication list for this problem includes: Amlodipine 10 Mg Tablet (Amlodipine) ..... Take 1 tablet by mouth once daily BP today: 153/95 Honorio Tirado MD Cardiology:She canno t tolerate fenofibrate, most up to date labs show trigs >400 R ecommend she try a statin medication. WIll have her do rosuvastatin 5mg once daily T he following medications were removed from the medication list: Fenofibrate Micronized 134 Mg Capsule (Fenofibrate micronized) ..... Take 1 capsule by mouth once daily with a meal Her updated medication list for this problem includes: Rosuvastatin 5 Mg Tablet (Rosuvastatin) ..... Take 1 tablet by mouth every evening or at bedtime daily Honorio Tirado MD Date Name Complete Echo LIPID PANEL COMPREHENSIVE METABO LIC PANEL, W/EGFR COMPREHENSIVE METABO LIC PANEL, W/EGFR LIPID PANEL LIPID PANEL COMPREHENSIVE METABO LIC PANEL, W/EGFR FREE AND TOTAL INSUL IN HEMOGLOBIN A1c BASIC METABOLIC PANE L W/EGFR HISTORY OF PROCEDURES Procedure Date Procedure Name Provider Procedure Notes S tatus Complex e/m visit add on Honorio Tirado MD completed EKG Honorio Tirado MD completed
--- OUTSIDE RECORDS SUMMARY | 2024-03-19 13:59 | XMS_ITS | Data Portability ---
Author Organization [facility] [place] Address [address] [place] [address] [place] [address] Care Team Providers Care Router Operator Pin Name Role Phone LINN FILIPPO Primary Care Provider Assessment Encounter Date Assessment Date Assessment LastModified by Organization Details LastModified Time 03/07/2023 03/07/2023 Annual gynecological exam performed. Patient will come back in a year unless there are new symptoms. Not available 03/07/2023 10:32:13 Plan of Treatment Reminders Order Date Submit Date Provider Last Modified By Organization Details Last Modified Time Details Appointments None recorded. Lab test, urine 2023 024 ponce [place], [address], [address], [place], [address], 4 12:16:28 Referral None recorded. Procedures None recorded. Surgeries None recorded. Imaging US, pelvis, complete 2023 024 LEDY [place], [address], [address], [place], [address], 4 05:01:14 US, pelvis 2023 024 ponce [place], [address], [address], [place], [address], 4 18:56:54 US, transvagina l 2023 024 ponce [place], [address], [address], [place], [address], 4 18:56:54 Medication Orders None recorded. Patient TargetsNo targets recorded. Patient InstructionsNo instructions recorded. Reason for Referral None Reported. Results Created Date Observation Date Name Description Value Unit Range Abnormal Flag Note LastModifiedBy Organization Detail LastModifiedTime 03/07/19 24 03/07/2023 IMAGE GUIDE D PAP AND HPV REGAR DLESS image guided Pap, HPV regardless of Pap result SEE RESULT S BELOW abnormal CASE REPOR T: Cytol ogy Gynec ologi mauricio Repor t Case: [id number] Autho christina forde Provi bonifacio: Fanny Kaiser, FINANCIAL SALES REPRESENTATIVE Colle cted: 03/07 1456 Order ing Locat ion: [place] Patho logy Recei ray: 03/08 0930 First Scree n: Lisa ryder ak, Randy ay, CT Patho logis t: Aziza Flower MD Speci men: Scree asher Pap - Image d, Cervi x STATE MENT OF ADEQU ACY: Satis facto ry for evalu ation Trans forma tion zone compo nent prese nt Parti ally obscu ring infla mmati on prese nt FINAL DIAGN OSIS: Epith elial Cell Abnor malit y, Gland ular Cell: Atypi mauricio gland ular cells , not other bergman speci fied (NOS) . Jennifer perry by Aziza Flower MD on 024 at 1:01 PM ----- ----- ----- ----- ----- ----- ----- ----- ----- ----- ----- ----- ----- ----- ----- ----- ----- ---- HPV RESUL TS: HPV mRNA E6/E7 : No HPV mRNA Detec marilia NOTE: This high risk HPV mRNA assay detec ts fourt een high- risk HPV types (16, 18, 31, 33, 35, 39, 45, 51, 52, 56, 58, 59, 66, 68) witho ut diffe renti ation . COMME NT: This speci men was revie wed by a Cytot echno logis t and/o r Patho logis t (as indic ated in this repor t) after evalu ation using the Thinp rep Imagi ng Syste m. CLINI MAURICIO INFOR MATIO N: Menst rual Statu s: LMP (if appli cable ): Clini mauricio Histo ry/Pr eviou s Pap: Type of Neopl dustin (if appli cable ): Signi fican t Clini mauricio Findi ngs: Other Histo ry: Hormo bev (if appli cable ): SUGGE STED FOLLO W-UP: Follo w up as warra nted, based on curre nt guide lines and indiv idual patie nt consi derat ions. Not Available [facility] (Lab) [address], [place], [address], 03/10/2023 14:05:46 03/07/19 24 03/07/2023 TRICH OMONA S VAGIN OWEN (RRNA ) trichomonas vaginalis ribosomal RNA (rrna) Negati ve negati ve Not Available [facility] (Lab) [address], [place], [address], 03/10/2023 14:05:47 03/07/19 24 03/07/2023 CT/GC (RICH) , THINP REP VIAL chlamydia trachomatis, PCR Negati ve negati ve Not Available [facility] (Lab) [address], [place], [address], 03/10/2023 14:05:48 03/07/19 24 03/07/2023 CT/GC (RICH) , THINP REP VIAL neisseria gonorrhoeae, PCR Negati ve negati ve Not Available [facility] (Lab) [address], [place], [address], 03/10/2023 14:05:48 03/21/19 24 03/21/2023 SURGI MAURICIO PATHO LOGY surgical pathology SEE RESULT S BELOW ADDEN DUM: At the reque st of Maye Placido , the slide s were sent out for addit ional consu ltati on at [facility] rsity [address], [facility] [place] [address] and revie wed by Johana cummins MD. The compl ete repor t has been scann ed into [facility]. Adden dum elect musa perry by Khai Tao MD on 024 at 10:51 AM ----- ----- ----- ----- ----- ----- ----- ----- ----- ----- ----- ----- ----- ----- ----- ----- ----- ---- CASE REPOR T: Surgi mauricio Patho logy Repor t Case: [id number] Autho christina Provi bonifacio: Krissy Lima MD Colle cted: 03/21 1705 Order ing Locat ion: [place] Patho [place] Recei ray: 03/22 0235 Patho logis t: Khai Tao MD Speci mens: A) - Endoc ervix , ECC B) - Endom etriu m, Endom etria l curet tings FINAL DIAGN OSIS: A. Endoc ervix , curet tage: -Dino gn endoc ervic al and ectoc ervic al mucos ae with acute infla mmati on. B. 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 -Mism atc repai r prote in immun ohist ochjavier istry is CRISTEL Barbour. -See comme nt. Elect musa perry by Khai Tao MD on 2023 at 10:50 AM ----- ----- ----- ----- ----- ----- ----- ----- ----- ----- ----- ----- ----- ----- ----- ----- ----- ---- COMME NT: Immun ohist ochem ical stain s perfo rmed on block B1 revea l tumor cells to stain posit ively with ER and TN. A p53 immun ostai n shows conchita godoy lidia rn stain ing. MLH1, PMS2, MSH2, and MSH6 expre ssion are intac t in tumor nucle i. This resul t argue s stron gly again st the prese nce of [place] syndr ome, a hered itary cance r syndr ome assoc iated with defic ient misma tch repai r funct ion. If clini jenelle suspi cious despi te this resul t, addit ional testi ng or fox ics consu ltati on may be indic ated. If clini jenelle indic ated, micro satel lite insta bilit y testi ng may be done to confi rm this cristel l resul t. Immun ohist ochem istry was perfo rmed on a [employer] taine r with the follo wing monoc lonal antib odies : MLH1 (clon e ES05) , PMS2 (clon e MRQ-2 8), MSH2 (clon e 25D12 ), MSH6 (clon e 44Mab ). Any defin ite stain ing in tumor nucle i is consi dered intac t. Diagn osis was commu nicat ed to Kendra olivier by Dr. Reinaldo zarate via phone at 10:46 AM on 03/23. This case was seen in intra depar tment al revie w with agree ment on the above diagn osis on 03/23. SYNOP TIC REPOR TS: Gynec ologi c Bioma rker Repor ting Templ ate GYNEC OLOGI C BIOMA RKER REPOR TING TEMPL ATE - B Minh col poste d: 2022 TEST( S) PERFO RMED Speci men Type: Biops y / curet tage Appro priat e Contr ols Verif ied: Yes Estro gen Environmental Studies Professor tor (ER) Statu s: Posit katty Perce ntage of Cells with Nucle ar Posit ivity : 50 % [place] ge Inten sity of Stain ing: Stron g Proge stero ne Environmental Studies Professor tor (PgR) Statu s: Posit katty Perce ntage of Cells with Nucle ar Posit ivity : 25 % [place] Inten sity of Stain ing: Stron g Misma tch Repai r (MMR) Prote in Statu s: Nucle ar MLH1 Expre ssion : Intac t Misma tch Repai r (MMR) Prote in Statu s: Nucle ar PMS2 Expre ssion : Intac t Misma tch Repai r (MMR) Prote in Statu s: Nucle ar MSH2 Expre ssion : Intac t Misma tch Repai r (MMR) Prote in Statu s: Nucle ar MSH6 Expre ssion : Intac t Misma tch Repai r (MMR) Prote in Statu s: Backg round non-n eopla stic tissu e / inter nal contr ol shows intac t nucle ar expre ssion Immun ohist ochem istry (IHC) Inter preta tion for Misma tch Repai r (MMR) Prote ins: No loss of nucle ar expre ssion of MMR prote ins: low proba bilit y of micro satel lite insta bilit y-hig h (MSI- H) pheno type p53 Statu s: Abnor mal expre ssion (muta marilia) : Overe xpres raul (stro ng, diffu se nucle ar expre ssion in great er than 90% of cells ) CLINI MAURICIO INFOR MATIO N: n87.9 MICRO SCOPI C DESCR IPTIO N: A micro scopi c exami natio n was perfo rmed. This test was devel oped and its perfo rmanc e satish cteri stics deter mined by [facility]. It has not been clear ed or appro ray by the U. S. Food and Drug Admin istra tion. The FDA has deter mined that such clear ance or appro ivory is not neces cecilio. This test may be used for clini mauricio purpo se. It shoul d not be regar ded as inves tigat ional or for resea rch. This labor atory is certi fied under the Clini mauricio Labor atory Impro vemen t Amend ments of 1987 (CLIA ) as quali fied to perfo rm high compl exity clini mauricio labor atory testi ng. In cases which have decal cifie d tissu es, the resul ts shoul d be inter prete d with cauti on given the possi bilit y of false negat emily. The posit katty contr ols demon strat e appro priat e posit katty stain ing. The known tissu e negat katty contr ols are negat katty. The non-i mmune serum contr ol was non-r eacti ve. GROSS DESCR IPTIO N: A. Endoc ervix . The speci men is label ed with the patie nt's name, demog raphi cs and ECC . Recei ray in forma joana is a 2.0 x 0.4 x 0.1 cm aggre gate of minut e red tissu e and mucus . It is submi tted all in one casse tte. Gross ed by Jeffery Hahn on B. Endom etriu m. The speci men is label ed with the patie nt's name, demog raphi cs and endom etria l curet tings . Recei ray in forma joana is a 4.4 x 2.1 x 0.5 cm aggre gate of dark red tissu e and mucus . The entir e speci men is submi tted in casse ttes B1-B4 . Gross ed by Jeffery Hahn on Not Available [facility] (Lab) [address], [place], [address], 05/11/2023 11:55:33 03/21/19 24 03/21/2023 pregn cyndee test, urine HCG negati ve Not Available [place] [address], [place], [address], 03/21/2023 12:05:51 03/14/19 24 03/14/2023 US, pelvi s No observ ation record ed. [email or web address] [place] [address], [place], [address], 03/14/2023 14:42:19 03/14/19 24 03/14/2023 US, trans vagin al No observ ation record ed. [email or web address] [place] [address], [place], [address], 03/14/2023 14:42:08 03/14/19 24 03/14/2023 US, pelvi s No observ ation record ed. [email or web address] [facility] [address], [place], [address], 03/21/2023 10:24:41 Result Notes None recorded. Problems Name Problem SNOMED Code Status Onset Date Resolution Date Notes Provider Name and Address Organization Details Recorded Time Hypertensive disorder 24489472 Active 2023 Ashleigh smith, [facility] 4 10:34:05 Mixed anxiety and depressive disorder 291140350 Active 2023 Ashleigh smith, [facility] 4 10:34:28 Problem Notes None recorded. Procedures Surgical History Date Name Laterality Status Provider Name and Address Organization Details Recorded Time 024 Colposcopy completed Constantin Lima MD [address], [place], [address], [facility] 03/21/2023 12:19:03 024 Endometrial Biopsy completed Constantin Lima MD [address], [place], [address], [facility] 03/21/2023 12:16:12 024 Colposcopy completed Ashleigh Brower [facility] 03/28/2023 10:39:18 024 Colposcopy completed Luz Bolaños [facility] 03/21/2023 10:08:47 024 Endometrial Biopsy completed Luz Bolaños [facility] 03/21/2023 10:08:56 024 Date of Last Mammogram completed [facility] 03/07/2023 10:35:58 993 Cholecystectomy completed [facility] 03/07/2023 10:42:08 988 Caesarean Section completed [facility] 03/07/2023 10:41:55 986 Caesarean Section completed [facility] 03/07/2023 10:41:51 979 termination of completed Ashleigh Brower [facility] 03/28/2023 10:43:31 976 tonsilectomy/adeno ids completed [facility] 03/07/2023 10:42:23 Imaging Results Imaging Date Name Status LastModified by Organization Details LastModified Time 03/14/2023 US, pelvis completed [email or web address] [facility] [address], [place], [address], 03/14/2023 14:42:19 03/14/2023 [facility]inal [email or web address] [address], [place], [address], 03/14/2023 14:42:08 03/14/2023 US, pelvis completed [email or web address] [facility] [address], [place], [address], 03/21/2023 10:24:41 Procedure Notes None recorded. Medical Equipment None Reported. Allergies No known drug allergies Medications Name Sig Start Date Stop Date Status Note LastModified by Organization Details LastModified Time losartan 50 mg tablet TAKE 1 TABLET BY MOUTH ONCE DAILY 03/28 completed Not Available Not Available Not Available bupropion HCl SR 150 mg tablet,12 hr sustained-re lease TAKE 1 TABLET BY MOUTH ONCE DAILY FOR 3 DAYS AND THEN 1 TWICE DAILY (LAST DOSE NO LATER THAN 6 PM ,STOP SMOKING AFTER 5-7 DAYS OF TAKING THIS, DO NOT CUT,SHANTHI H OR CHEW) active Not Available Not Available No t Available paroxetine 10 mg tablet TAKE 1 TABLET BY MOUTH ONCE DAILY IN THE MORNING 03/07 completed Not Available Not Available Not Available amlodipine 2.5 mg tablet TAKE 1 TABLET BY MOUTH ONCE DAILY 03/07 completed Not Available Not Available Not Available amlodipine 5 mg tablet TAKE 1 TABLET BY MOUTH ONCE DAILY 03/07 completed Not Available Not Available Not Available fenofibrate micronized 134 mg capsule TAKE 1 CAPSULE BY MOUTH ONCE DAILY WITH A MEAL 03/07 completed Not Available Not Available Not Available amlodipine 10 mg tablet TAKE 1 TABLET BY MOUTH ONCE DAILY active Not Available Not Available No t Available paroxetine 20 mg tablet TAKE 1 TABLET BY MOUTH ONCE DAILY IN THE MORNING 03/28 completed Not Available Not Available Not Available amoxicillin 500 mg-potassium clavulanate 125 mg tablet TAKE 1 TABLET BY MOUTH EVERY 8 HOURS FOR 7 DAYS 03/07 completed Not Available Not Available Not Available rosuvastatin 5 mg tablet TAKE 1 TABLET BY MOUTH ONCE DAILY IN THE EVENING OR AT BEDTIME active Not Available Not Available No t Available fenofibrate nanocrystall ized 145 mg tablet TAKE 1 TABLET BY MOUTH ONCE DAILY 03/07 completed Not Available Not Available Not Available Vitals Date Recorded Body height Body mass index (BMI) Body weight Systolic blood pressure Diastolic blood pressure Systolic blood pressure Diastolic blood pressure Provider Name and Address Organization Details Last Updated DateTime 4 154.94 cm 30.8 kg/m2 81615.5 6 g 151 mm[Hg] 82 mm[Hg] 142 mm[Hg] 80 mm[Hg] Gale Phoenix [facility] 4 11:00:31 Date Recorded Body height Body mass index (BMI) Body weight Systolic blood pressure Diastolic blood pressure Provider Name and Address Organization Details Last Updated DateTime 03/21/2023 154.94 cm 30.8 kg/m2 64620.56 g 149 mm[Hg] 81 mm[Hg] Luz Bolaños [facility] 4 10:08:36 Date Recorded Body height Body mass index (BMI) Body weight Systolic blood pressure Diastolic blood pressure Provider Name and Address Organization Details Last Updated DateTime 03/28/2023 154.94 cm 30.4 kg/m2 75198.37 g 128 mm[Hg] 91 mm[Hg] Ashleigh Brower [facility] 4 10:33:42 Social History Question Answer Notes LastModified by Organizat ion Details LastModified Time Tobacco Smoking Status Current Every Day Smoker Gale Alban smith, [facility] 03/07/2023 10:41:25 What Is Your Level Of Alcohol Consumption? None Information not available 03/07/2023 Are You Blind Or Do You Have Difficulty Seeing? No [email or web address] Information n ot available 03/28/2023 In The 14 Days Before Symptom Onset, Have You Had Close Contact With A Laboratory-confirm ed COVID-19 While That Case Was Ill? No Information n ot available 03/07/2023 In The 14 Days Before Symptom Onset, Have You Had Close Contact With A Person Who Is Under Investigation For COVID-19 While That Person Was Ill? No Information not available 03/07/2023 Have You Been To An Area Known To Be High Risk For COVID-19? No Information not available 03/07/2023 Are You Deaf Or Do You Have Serious Difficulty Hearing? No [email or web address] Information not available 03/28/2023 What Type Of Diet Are You Following? REGULAR Information n ot available 03/28/2023 Do You Use Your Seat Belt Or Car Seat Routinely? Yes Information not available 03/28/2023 Do You Have Smoke And Carbon Monoxide Detectors In Your Home? Yes [email or web address] Information not available 03/28/2023 Do You Feel Stressed (tense, Restless, Nervous, Or Anxious, Or Unable To Sleep At Night)? [id number] Information not available 03/28/2023 Do You Use Any Illicit Or Recreational Drugs? No Information not available 03/07/2023 Do You Use Sunscreen Routinely? Yes [email or web address] Information not available 03/28/2023 Sex: Unknown Functional Status Question Answer Note LastModified by Organizat ion Details LastModified Time Do you have difficulty walking or climbing stairs? No [email or web address] Information not available 03/28/2023 Are you able to walk? YESWOREST [email or web address] Information not available 03/28/2023 Are you able to care for yourself? Yes [email or web address] Information not available 03/28/2023 Do you have difficulty dressing or bathing? No [email or web address] Information not available 03/28/2023 What is your exercise level? Occasional [email or web address] Information not available 03/28/2023 Mental Status None recorded. Family History Relationship Description Onset Age of this Age Resolved Age Notes LastModified by Organization Details LastModified Time Mother Malignant tumor of colon Not available 2023 10:40:56 Medical History Condition Response Allergies (Food, seasonal, environmental ) N Other N Breast Cancer N Drug/Latex Allergies/Reactions N Blood Transfusion N Dermatologic Disorders Y Lung Disease N Defects or Inherited Disease N Breast Problem N Gestational Diabetes N Hematologic disorders N Anesthesia Complications N History of STI N Deep Vein Thrombosis N Polycystic ovary syndrome N Anxiety Disorder Y Autoimmune disease N Arthritis N Infertility N Polyps N Acid Reflux (GERD) N History of abnormal pap Y Cancer N Stroke N Varicosities N Neurologic/Epilepsy N Endometriosis N High Cholesterol Y Headaches N Fibromyalgia N Kidney Disease N Heart Problems N Kidney or Bladder Problems N Thyroid Problems N GI Problems N Eating Disorder N Anemia N Art (IVF or FET) N Psychiatric Illness N Ovarian Cancer N Diabetes N Pulmonary (TB, Asthma) N Hepatitis/Liver Disease N No Past Medical History N Eczema N Urinary Tract Infection N Abuse/Domestic Violence N Asthma N Trauma/Violence N Depression/ depression Y Heart Disease N Pre-Eclampsia N Hypertension Y Osteoporosis N Thrombophilias N Gynecological History Statement/Question Response Abnormal Pap Y Date of Last Mammogram 02/28/2023 Date of LMP 02/08/2020 On BCP's at Conception? N STIs/STDs N HPV Vaccine N Colposcopy 03/21/2023 Current Control Method Menopause Age at First Child 24 If Post Menopausal, Age at Menopause 59 Date of Last Colonoscopy Sexually Active? N Menses Monthly N Date of DEXA bone scan Age of first menstrual cycle 15 Date of Last Pap Smear LMP Unknown Obstetrics History GPAL:G 3 P 2 0 1 2 Type Value Full Term 2 Induced 1 Living 2 Total 3 Past Encounters Encounter ID Performer Location Encounter Start Date Encounter Closed Date Diagnosis/Indication Diagnosis SNOMED-CT Code Diagnosis ICD10 Code Diagnosis Note [id number] ALICIA Caro [place] [address] [address] 03/07/2023 09:59:23 03/07/2023 14:19:17 Gynecologic examination 02291902 Z01.419 WWEpap updatedgc/ ct/trich testing added to papmammogr am UTD/PCPnee d colonoscop y - has order from PCP, encouraged to scheduleBP precaution s discussed, encouraged continue f/u with PCProutine labs UTD/PCP Take Calcium with Vitamin D daily.Do monthly self breast exams.It is advised to get annual flu shot in the fall and she could obtain at [facility] or [facility] clinic. If you haven't received the Tdap vaccine in the last 10 years you should obtain one as well.Have mammogram yearly, bone density every 2-3 years and colonoscop y every 5-10 years depending on findings and history.En bruce in daily exercise of low impact aerobic exercise 45-60 minutes 4-5 times weekly. Avoid tobacco and illicit drugs. This lifestyle behavior pattern will lead to less health conditions and longer life span. If BMI greater than 25 dietary consult advised.Qu estions have been answered. Patient appears to understand instructio ns, but if you have any further questions call or respond to this email Postmenopa usal bleeding 95285929 N95.0 Discussed postmenopa usal bleeding which warrants further evaluation pelvic u/s ordereddis cussed need for EMB once u/s reviewed Time spent in visit is a total of 35 mins with at least 50% of visit consisting of counseling and review of plan of care. [id number] Lurdes Allen [place] [address] [address] 03/14/2023 09:59:31 03/14/2023 11:13:16 Postmenopausal bleeding 74760464 N95.0 [id number] Constantin Lima MD [place] [address] [address] 03/21/2023 09:49:06 03/21/2023 12:23:29 Screening procedure 47971133 Z13.9 Abnormal c ervical Papanicolaou smear 636139396 R87.619 Postmenopa usal bleeding 60000744 N95.0 Colposcopi c examinatio n was performed for cervical dysplasia or abnormal Pap smear rather. Endometria l biopsy was performed without complicati on. She tolerated these well. Colposcopi c examinatio n appeared normal. It was not satisfacto ry however. [id number] Constantin Lima MD [place] [address] [address] 03/28/2023 09:54:39 03/28/2023 11:28:58 Primary endometrioid carcinoma of endometrium [id number] C54.1 62-year-ol d female who presents for follow-up on endometria l biopsy. She has a FIGO grade 1 endometrio id endometria l cancer. We discussed prognosis to some degree. We discussed the staging is a surgical staging. We discussed referral to Gyne Onc. I offered her assistance for anything that we could take care while she is going through her treatment. We spent 20 minutes face-to-fa ce. More than 50% was counseling . She will follow-up as needed. Health Concerns Section Related Observation LastModified by Organization Detai ls LastModified Time None Recorded Concern Status LastModified by Organization Details LastModified Time None Recorded Advance Directives Directive None Recorded Payers Encounter Date Sequence Insurance Name Policy Number Policy Saenz Covered Member ID Saenz Member ID Guarantor Name 03/07/2023 1 R [id number] Jie Anthony [id number] Jie Anthony 03/14/2023 1 UMR [id number] Jie Anthony [id number] Jie Anthony 03/21/2023 1 UMR [id number] Jie Anthony [id number] Jie Anthony 03/28/2023 1 R [id number] Jie Anthony [id number] Jie Anthony Notes Date Note Type Note Provider Name and Address Organization Details Recorded Time 03/07/2023 text/html Annual [employer] Post-MenopausalReport ed bypatient.Menopausal Symptoms:no menopausal symptoms; normal vaginal lubrication Vaginal Bleeding:unexplained vaginal bleeding;post menopausal bleeding Urinary Symptoms:no hematuria; no incontinence; no nocturia; no urinary frequency Vulva:no genital lesion; no vulvar atrophy Vagina:normal vaginal discharge; no vaginal atrophy Breast:no breast lump; no nipple discharge; no breast pain Sexual Complaints:no sexual complaints Psychological Symptoms:no depression; no anxiety Preventive Measures:encourage regular mammograms starting age 40; encourage self breast examination; encourage regular exercise; encourage no tobacco use; mammogram performed within the past year; needs to schedule colonoscopyNotes:pap last 20 yrs ago - no abnormals per ptpostmenopausal since 59 - since then however will have episodes of random vaginal bleeding when wiping. occurring a few times a month, very light. No blood in stool or urine noted.Not SA currentlyneg vaginal discharge/odors/itchi ngmammogram last 02/2023 - normal per ptno colon CA screening yet, has order from PCP ALICIA Caro [address], [place], [address], [facility] 03/07/2023 14:07:36 03/21/2023 text/html 62-year-old maryanne cummins with postmenopausal bleeding and abnormal Pap smear. Presents for colposcopy, ECC, and endometrial biopsy. The procedure has been explained to her in detail. She understands risks, benefits, and alternatives. She is completed the informed consent process. Constantin Lima MD [address], [place], [address], [facility] 03/21/2023 12:19:08 03/28/2023 text/html 62-year-old maryanne cummins who presents for follow-up on endometrial biopsy. She has a FIGO grade 1 endometrioid endometrial cancer. We discussed prognosis to some degree. We discussed the staging is a surgical staging. We discussed referral to Gyne Onc. I offered her assistance for anything that we could take care while she is going through her treatment. We spent 20 minutes [id number]. More than 50% was counseling. She will follow-up as needed. Constantin Lima MD [address], [place], [address], [facility] 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 Status 03/07/19 24 1 CLOSED Fetus Data First Name Last Name Admitted to NICU Weight (g) Sex Living Outcome Pediatric Complications Fetus ID Race Codes Race Delivery Type , Induced [id number] Sanya Calculation Initial Sanya Date Initial Exam Date Initial Exam Provider Initial Ultrasound Date Last Menstrual Period Date Ultra Sound Weeks Gestation 0 Eighteen To Twenty Week Sanya Update Ultra Sound Date Fundal Height At Umbil Quickening Date Ultra Sound Latest Weeks Gestation Final Sanya Confirmed By Final Sanya Confirmed Date Final Sanya Date Ultra Sound Latest Days Gestation 0 0 Menstrual History Last Menstrual Date Menses Monthly On Bcp Conception Prior Menses Frequency Hcg Plus Date Menarche Onset Age Delivery Information Delivery Date Delivery Type Labor Anesthesia Weeks Gestation Incision Type Labor Labor Length Hrs Delivered By Post Complications Tubal Sterilization Discharge Date Comments 9 Discharge Information Feeding Method Contraceptive Method Maternal HG B and HCT Levels Ob Episode Information Episode Created Date Number of Fetuses Patient Bloodtype Patient rh Status Prepregnancy Weight lbs Domestic Partner Domestic Partner Phone Father Name Fuel Cell Assembler Status 03/07/19 24 1 CLOSED Fetus Data First Name Last Name Admitted to NICU Weight (g) Sex Living Outcome Pediatric Complications Fetus ID Race Codes Race Delivery Type 3288.54 2 F Full Term 07415 Repeat Sanya Calculation Initial Sanya Date Initial Exam Date Initial Exam Provider Initial Ultrasound Date Last Menstrual Period Date Ultra Sound Weeks Gestation 0 Eighteen To Twenty Week Sanya Update Ultra Sound Date Fundal Height At Umbil Quickening Date Ultra Sound Latest Weeks Gestation Final Sanya Confirmed By Final Sanya Confirmed Date Final Sanya Date Ultra Sound Latest Days Gestation 0 0 Menstrual History Last Menstrual Date Menses Monthly On Bcp Conception Prior Menses Frequency Hcg Plus Date Menarche Onset Age Delivery Information Delivery Date Delivery Type Labor Anesthesia Weeks Gestation Incision Type Labor Labor Length Hrs Delivered By Post Complications Tubal Sterilization Discharge Date Comments 8 Discharge Information Feeding Method Contraceptive Method Maternal HG B and HCT Levels Ob Episode Information Episode Created Date Number of Fetuses Patient Bloodtype Patient rh Status Prepregnancy Weight lbs Domestic Partner Domestic Partner Phone Father Name Fuel Cell Assembler Status 03/07/19 24 1 CLOSED Fetus Data First Name Last Name Admitted to NICU Weight (g) Sex Living Outcome Pediatric Complications Fetus ID Race Codes Race Delivery Type 4110.45 0704 M Full Term 19872 Primary Sanya Calculation Initial Sanya Date Initial Exam Date Initial Exam Provider Initial Ultrasound Date Last Menstrual Period Date Ultra Sound Weeks Gestation 0 Eighteen To Twenty Week Sanya Update Ultra Sound Date Fundal Height At Umbil Quickening Date Ultra Sound Latest Weeks Gestation Final Sanya Confirmed By Final Sayna Confirmed Date Final Sanya Date Ultra Sound Latest Days Gestation 0 0 Menstrual History Last Menstrual Date Menses Monthly On Bcp Conception Prior Menses Frequency Hcg Plus Date Menarche Onset Age Delivery Information Delivery Date Delivery Type Labor Anesthesia Weeks Gestation Incision Type Labor Labor Length Hrs Delivered By Post Complications Tubal Sterilization Discharge Date Comments 6 Discharge Information Feeding Method Contraceptive Method Maternal HG B and HCT Levels
== END 2024-03-19 13:46 | disposition home or self-care (01) ==
PROVIDERS: PCP Emergency Medicine; Visit Provider Emergency Medicine
DX: M25.552 Pain in left hip (principal); M25.551 Pain in right hip
CPT/HCPCS: 73521

== ENCOUNTER 2024-04-02 09:35 | Outpatient (CLI) | payer OTHER, SELFPAY ==
--- NOTE | ~2024-04-02 | CT_ITS ---
CT Scan of the Chest without Contrast: Clinical Indication: Lung cancer screening, nicotine dependence Technique: Contiguous sections were acquired throughout the chest without intravenous contrast. Dose reduction technique was used on this scan by utilizing automated exposure control and iterative recon struction technique. The dose-length product (DLP) was 147.30 mGy-cm. Findings: There is no evidence of any significant mediastinal, hilar or axillary lymphadenopathy. Calcified rig ht hilar lymph node present. Coronary artery calcifications are present. There is no evidence of pleural or pericardial effusion. Small calcified right upper lobe granuloma present. No other pulmonary nodule evident. Images through the upper abdomen reveal no abnormalities. Impression: Lung RADS 1: Negative. 12 month follow-up screening CT advised. Reviewed, dictated and finalized at location . [employer] Impression: Lung RADS 1: Negative. 12 month follow-up screening CT advised.
--- OUTSIDE RECORDS SUMMARY | 2024-04-02 10:25 | XMS_ITS | Continuity of Care Document ---
Author Name [facility] Organization DOD-CT Care Team Providers Care Head Sawyer Name Role Phone [facility] Unavailable Unavailable Encounters [...] ADM Date DC Date Status Disposition Source [facility] Outpatient Encounter [id number] 08/14 [facility] KIMBERLY Andersen
--- OUTSIDE RECORDS SUMMARY | 2024-04-02 10:26 | XMS_ITS ---
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 Not yet ready to quit but contemplating. Follow up with PCP. Assessment & Plan (05/09/2023 4:59 PM CDT): Smokes 1ppd (>40-years). Not yet ready to quit. Encouraged reducing amount perioperatively. Follow up with PCP. Current Treatment and Therapy Plans No current plan information found. Past Treatment and Therapy Plans No past plan information found. Lifetime Dose Tracking * Chemical Lifetime Dose Automatic Entry Manual Entr y DLP 569 mGycm 569 mGycm 0 mGycm
--- OUTSIDE RECORDS SUMMARY | 2024-04-02 10:26 | XMS_ITS | Data Portability ---
Author Organization [facility] [place] Address [address] [place] [address] Care Team Providers Care Deck Molder Name Role Phone FILIPPO ESTEVES Primary Care Provider Assessment Encounter Date Assessment [...] recorded. Lab test, urine 2023 024 [address] [place], [address], [place], [address], 12:16:28 Referral None recorded. Procedures None recorded. Surgeries None recorded. Imaging US, pelvis 2023 024 [facility] [place], [address], [address], [place], [address], 18:56:54 US, transvagina l 2023 024 [facility] [place], [address], [address], [place], [address], 18:56:54 US, pelvis, complete 2023 024 [facility] [place], [address], [address], [place], [address], 05:01:14 Medication Orders None recorded. Patient TargetsNo targets [...] Autho christina forde Provi bonifacio: Fanny Kaiser, DIRECTOR OF REVENUE CYCLE MANAGEMENT Colle cted: 03/07 1456 Order ing Locat [...] patie nt consi derat ions. Not Available [facility] (Lab) [address], [place], [address], 03/10/2023 14:05:46 03/07/19 24 03/07/2023 TRICH OMONA S VAGIN OWEN (RRNA ) trichomonas vaginalis ribosomal RNA (rrna) Negati ve negati ve Not Available [facility] (Lab) [address], [place], [address], 03/10/2023 14:05:47 03/07/19 24 03/07/2023 CT/GC (RICH) , THINP REP VIAL chlamydia trachomatis, PCR Negati ve negati ve Not Available [facility] (Lab) [address], [place], [address], 03/10/2023 14:05:48 03/07/19 24 03/07/2023 CT/GC (RICH) , THINP REP VIAL neisseria gonorrhoeae, PCR Negati ve negati ve Not Available [facility] (Lab) [address], [place], [address], 03/10/2023 14:05:48 03/21/19 24 03/21/2023 SURGI MAURICIO PATHO LOGY surgical pathology SEE RESULT S BELOW ADDEN DUM: At the reque st of Maye Placido , the slide s were sent out for addit ional consu ltati on at [facility] rsity [address], [place] [address] and revie wed by Johana cummins MD. The compl ete repor t has been scann ed into [facility]. Adden dum elect musa perry by [...] to stain posit ively with ER and MO. A p53 immun ostai n shows conchita [...] ochem istry was perfo rmed on a [employer] [place] taine r with the follo wing monoc [...] Contr ols Verif ied: Yes Estro gen Damage Cutter tor (ER) Statu s: Posit katty Perce ntage of Cells with Nucle ar Posit ivity : 50 % Register ge Inten sity of Stain ing: Stron g Proge stero ne Damage Cutter tor (PgR) Statu s: Posit katty Perce ntage of Cells with Nucle ar Posit ivity : 25 % Register ge Inten sity of Stain ing: Stron [...] stain ing. The known tissu e negat aktty contr ols are negat katty. The non-i [...] ed by Jeffery Hahn on Not Available [facility] (Lab) [address], [place], [address], 05/11/2023 11:55:33 03/21/19 24 03/21/2023 pregn cyndee test, urine HCG negati ve Not Available [place] [address], [place], [address], 03/21/2023 12:05:51 03/14/19 24 03/14/2023 US, pelvi s No observ ation record ed. [email or web address] [place] [address], [place], [address], 03/14/2023 14:42:19 03/14/19 24 03/14/2023 US, trans vagin al No observ ation record ed. [email or web address] [place] [address], [place], [address], 03/14/2023 14:42:08 03/14/19 24 03/14/2023 US, pelvi s No observ ation record ed. [email or web address] [facility] [address], [place], [address], 03/21/2023 10:24:41 Result Notes None recorded. Problems Name Problem SNOMED Code Status Onset Date Resolution Date Notes Provider Name and Address Organization Details Recorded Time Hypertensive disorder 91524411 Active 2023 Ashleigh smith, [facility] 4 10:34:05 Mixed anxiety and depressive disorder 476168104 Active 2023 Ashleigh smith, [facility] 4 10:34:28 Problem Notes None recorded. Procedures Surgical History Date Name Laterality Status Provider Name and Address Organization Details Recorded Time 024 Colposcopy completed Constantin Lima MD [address], [place], [address], [facility] 03/21/2023 12:19:03 024 Endometrial Biopsy completed Constantin Lima MD [address], [place], [address], [facility] 03/21/2023 12:16:12 024 Colposcopy completed Ashleigh Brower [facility] 03/28/2023 10:39:18 024 Colposcopy completed Luz Bolaños [facility] 03/21/2023 10:08:47 024 Endometrial Biopsy completed Luz Bolaños [facility] 03/21/2023 10:08:56 024 Date of Last Mammogram completed [facility] 03/07/2023 10:35:58 993 Cholecystectomy completed [facility] 03/07/2023 10:42:08 988 Caesarean Section completed [facility] 03/07/2023 10:41:55 986 Caesarean Section completed [facility] 03/07/2023 10:41:51 979 termination of completed Ashleigh Brower [facility] 03/28/2023 10:43:31 976 tonsilectomy/adeno ids completed [facility] 03/07/2023 10:42:23 Imaging Results Imaging Date Name Status LastModified by Organization Details LastModified Time 03/14/2023 US, pelvis completed [email or web address] [facility] [address], [place], [address], 03/14/2023 14:42:19 03/14/2023 US, [facility]vaginal [email or web address] [address], [place], [address], 03/14/2023 14:42:08 03/14/2023 US, pelvis completed [email or web address] [facility] [address], [place], [address], 03/21/2023 10:24:41 Procedure Notes None recorded. Medical [...] Updated DateTime 4 154.94 cm 30.8 kg/m2 68851.5 6 g 151 mm[Hg] 82 mm[Hg] 142 mm[Hg] 80 mm[Hg] Gale Phoenix [facility] 4 11:00:31 Date Recorded Body height Body mass index (BMI) Body weight Systolic blood pressure Diastolic blood pressure Provider Name and Address Organization Details Last Updated DateTime 03/21/2023 154.94 cm 30.8 kg/m2 29435.56 g 149 mm[Hg] 81 mm[Hg] Luz Bolaños [facility] 4 10:08:36 Date Recorded Body height Body mass index (BMI) Body weight Systolic blood pressure Diastolic blood pressure Provider Name and Address Organization Details Last Updated DateTime 03/28/2023 154.94 cm 30.4 kg/m2 65343.37 g 128 mm[Hg] 91 mm[Hg] Ashleigh Brower [facility] 4 10:33:42 Social History Question Answer Notes LastModified by Organizat ion Details LastModified Time Tobacco Smoking Status Current Every Day Smoker Gale Alban smith, [facility] 03/07/2023 10:41:25 What Is Your Level Of Alcohol Consumption? None Information not available 03/07/2023 Are You Blind Or Do You Have Difficulty Seeing? No [email or web address] Information n ot available 03/28/2023 In The [...] Do You Have Serious Difficulty Hearing? No [email or web address] Information not available 03/28/2023 What Type Of Diet Are You Following? REGULAR [email or web address] Information n ot available 03/28/2023 Do You Use Your Seat Belt Or Car Seat Routinely? Yes [email or web address] Information not available 03/28/2023 Do You Have Smoke And Carbon Monoxide Detectors In Your Home? Yes [email or web address] Information not available 03/28/2023 Do You Feel Stressed (tense, Restless, Nervous, Or Anxious, Or Unable To Sleep At Night)? [id number] [email or web address] Information not available 03/28/2023 Do You Use Any Illicit Or Recreational Drugs? No Information not available 03/07/2023 Do You Use Sunscreen Routinely? Yes [email or web address] Information not available 03/28/2023 Sex: Unknown Functional Status Question Answer Note LastModified by Organizat ion Details LastModified Time Do you have difficulty walking or climbing stairs? No Information not available 03/28/2023 Are you able to walk? YESWOREST [email or web address] Information not available 03/28/2023 Are you able to care for yourself? Yes Information not available 03/28/2023 Do you have difficulty dressing or bathing? No [email or web address] Information not available 03/28/2023 What is your exercise level? Occasional [email or web address] Information not available 03/28/2023 Mental Status None [...] SNOMED-CT Code Diagnosis ICD10 Code Diagnosis Note [id number] ALICIA Caro [place] [address] [address] 03/07/2023 09:59:23 03/07/2023 14:19:17 Gynecologic examination 70488008 Z01.419 WWEpap updatedgc/ ct/trich testing added to papmammogr am UTD/PCPnee d colonoscop y - has order from PCP, encouraged to scheduleBP precaution s discussed, encouraged continue f/u with PCProutine labs UTD/PCP Take Calcium with Vitamin D daily.Do monthly self breast exams.It is advised to get annual flu shot in the fall and she could obtain at [facility] or [facility] clinic. If you haven't received the [...] respond to this email Postmenopa usal bleeding 21799216 N95.0 Discussed postmenopa usal bleeding which warrants further evaluation pelvic u/s ordereddis cussed need for EMB once u/s reviewed Time spent in visit is a total of 35 mins with at least 50% of visit consisting of counseling and review of plan of care. [id number] Lurdes Allen [place] [address] [address] 03/14/2023 09:59:31 03/14/2023 11:13:16 Postmenopausal bleeding 92102376 N95.0 [id number] Constantin Lima MD [place] [address] [address] 03/21/2023 09:49:06 03/21/2023 12:23:29 Screening procedure 05597334 Z13.9 Abnormal c ervical Papanicolaou smear 827926825 R87.619 Postmenopa usal bleeding 04349212 N95.0 Colposcopi c examinatio n was performed for cervical dysplasia or abnormal Pap smear rather. Endometria l biopsy was performed without complicati on. She tolerated these well. Colposcopi c examinatio n appeared normal. It was not satisfacto ry however. [id number] Constantin Lima MD [place] [address] [address] 03/28/2023 09:54:39 03/28/2023 11:28:58 Primary endometrioid carcinoma of endometrium [id number] C54.1 62-year-ol d female who presents for [...] Member ID Guarantor Name 03/07/2023 1 R [id number] Jie Anthony [id number] Jie Anthony 03/14/2023 1 UMR [id number] Jie Anthony [id number] Jie Anthony 03/21/2023 1 UMR [id number] Jie Anthony [id number] Jie Anthony 03/28/2023 1 R [id number] Jie Anthony [id number] Jie Anthony Notes Date Note Type Note Provider Name and Address Organization Details Recorded Time 03/07/2023 text/html Annual Property Assistant Post-MenopausalReport ed bypatient.Menopausal Symptoms:no menopausal symptoms; normal [...] from PCP ALICIA Caro [address], [place], [address], [facility] 03/07/2023 14:07:36 03/21/2023 text/html 62-year-old maryanne cummins with postmenopausal bleeding and abnormal Pap smear. Presents for colposcopy, ECC, and endometrial biopsy. The procedure has been explained to her in detail. She understands risks, benefits, and alternatives. She is completed the informed consent process. Constantin Lima MD [address], [place], [address], [facility] 03/21/2023 12:19:08 03/28/2023 text/html 62-year-old maryanne [...] through her treatment. We spent 20 minutes jotz-pg-feis. More than 50% was counseling. She will follow-up as needed. Constantin Lima MD [address], [place], [address], [facility] 03/28/2023 11:27:24 OBGyn Episode Ob Episode Information Episode Created Date Number of Fetuses Patient Bloodtype Patient rh Status Prepregnancy Weight lbs Domestic Partner Domestic Partner Phone Father Name Accounting Supervisor Status 03/07/19 24 1 CLOSED Fetus Data First Name Last Name Admitted to NICU Weight (g) Sex Living Outcome Pediatric Complications Fetus ID Race Codes Race Delivery Type , Induced 72847 Sanya Calculation Initial Sanya Date Initial Exam [...] Domestic Partner Domestic Partner Phone Father Name Accounting Supervisor Status 03/07/19 24 1 CLOSED Fetus Data First Name Last Name Admitted to NICU Weight (g) Sex Living Outcome Pediatric Complications Fetus ID Race Codes Race Delivery Type 3288.54 2 F Full Term 83090 Repeat Sanya Calculation Initial Sanya Date Initial [...] Domestic Partner Domestic Partner Phone Father Name Accounting Supervisor Status 03/07/19 24 1 CLOSED Fetus Data First Name Last Name Admitted to NICU Weight (g) Sex Living Outcome Pediatric Complications Fetus ID Race Codes Race Delivery Type 4110.45 0704 M Full Term [id number] Primary Sanya Calculation Initial Sanya Date Initial [...]
--- OUTSIDE RECORDS SUMMARY | 2024-04-02 10:26 | XMS_ITS | Clinical Summary ---
Author Organization [facility] Address [address] [place] [address] Care Team Providers Care Lokie Driver Name Role Phone None, Provider MD Primary [...] patient's age to complete [place] [address] [employer] Care Teams Lokie Driver Relationship Specialty Start Date End Date None, Provider, PCP - General 05/20/21
--- OUTSIDE RECORDS SUMMARY | 2024-04-02 10:26 | XMS_ITS | Clinical Summary ---
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 Not yet ready to quit but contemplating. Follow up with PCP. Assessment & Plan (05/09/2023 4:59 PM CDT): Smokes 1ppd (>40-years). Not yet ready to quit. Encouraged reducing amount perioperatively. Follow up with PCP. Encounters Date Type Department Care Team Description 03/19/2024 12:05 AM GEOPHYSICAL ENGINEER - 03/19/2024 11:59 PM GEOPHYSICAL ENGINEER Hospital Encounter [facility] [employer] [address] [facility] [place] [address] Discharge Disposition: Discharge to home or self care 03/19/2024 - 03/19/2024 11:59 PM GEOPHYSICAL ENGINEER Hospital Encounter [facility] [employer] [address] [facility] [place] [address] Discharge Disposition: Discharge to home or self care 01/26/2024 Telephone [facility] Obstetrics and Gynecology [address] [facility] 13th [place] [address] [place] [address] Ivania Galvan RN Test Results 01/20/2024 1:30 PM GEOPHYSICAL ENGINEER Office Visit [facility] Obstetrics and Gynecology [address] [facility] Medicine 13th [place] [address] [place] [address] Johana Fitzpatrick MD Endometrial cancer (CMS/HCC) (HCC) (Primary Dx) 01/20/2024 9:36 AM GEOPHYSICAL ENGINEER - 01/20/2024 11:59 PM GEOPHYSICAL ENGINEER Hospital Encounter [facility] PATHOLOGY [address] [facility] 3rd [place] [address] Endometrial cancer (CMS/HCC) (HCC) Discharge Disposition: Discharge [...] on file Legal Sex Female 6:01 PM GEOPHYSICAL ENGINEER Gender Identity Female 05/10/2023 1:35 PM CDT [...] Comments Blood Pressure 137/80 01/20/2024 1:54 PM GEOPHYSICAL ENGINEER Pulse 76 01/20/2024 1:54 PM GEOPHYSICAL ENGINEER Temperature 36.8 C (98.2 F) 01/20/2024 1:54 PM GEOPHYSICAL ENGINEER Respiratory Rate 16 01/20/2024 1:54 PM GEOPHYSICAL ENGINEER Oxygen Saturation 96% 01/20/2024 1:54 PM GEOPHYSICAL ENGINEER Inhaled Oxygen Concentration - - Weight 76.6 kg (168 lb 12.8 oz) 01/20/2024 1:54 PM GEOPHYSICAL ENGINEER Height 154.9 cm (5' 0.98 ) 01/20/2024 1:54 PM CS T Body Mass Index 31.91 01/20/2024 1:54 PM GEOPHYSICAL ENGINEER Plan of Treatment Health Maintenance Due Date Last Done Comments Breast Cancer Screening-Mammogram 1960 Cervical Cancer Screening 1960 Colon Cancer Screening-Colonoscopy 1960 Depression Screening 1960 Hepatitis C Screening 1962 DTaP/Tdap/Td Vaccine (1 - Tdap) 1973 Hepatitis B Screening 1980 Regular Well Visit/Exam 18-64 1980 Pneumococcal vaccine <65 (1 of 2 - PCV) 1981 Lung Cancer Screening 2012 Zoster Vaccine (1 of 2) 2012 Influenza Vaccine (#1) 2023 Procedures Procedure Name Priority Date/Time Associated Diagnosis Comments XR TRANSFER OF OUTSIDE FILMS Routine 03/19/2024 12:05 AM GEOPHYSICAL ENGINEER XR TRANSFER OF OUTSIDE FILMS Routine 03/19/2024 12:00 AM GEOPHYSICAL ENGINEER SURGICAL PATHOLOGY Routine 01/20/2024 12 :00 AM GEOPHYSICAL ENGINEER Endometrial cancer (CMS/HCC) (HCC) from Last 3 Months Results * XR Outside Reference (03/19/2024 12:05 AM GEOPHYSICAL ENGINEER) Narrative YONG_MAURO_[email or web address] - 03/30/2024 9:37 AM GEOPHYSICAL ENGINEER This order has been auto-finalized and does not contain a result. us Provider Transcribed Order IMG XR PROCEDURES Fin al Result Performing Organization Address [facility] Co de Phone Number [email or web address] * XR Outside Reference (03/19/2024 12:00 AM GEOPHYSICAL ENGINEER) Narrative RAD_MAURO_HÉCTOR_POOJAE - 03/30/2024 9:20 AM GEOPHYSICAL ENGINEER This order has been auto-finalized and does not contain a result. us Provider Transcribed Order IMG XR PROCEDURES Fin al Result Performing Organization Address [facility] Co de Phone Number [email or web address] * Surgical pathology (01/20/2024 12:00 AM GEOPHYSICAL ENGINEER) Tissue (Vagina, Biopsy) 01/20/2024 01/23/2024 4:19 AM GEOPHYSICAL ENGINEER Narrative PATHOLOGY [facility] - 01/24/2024 12:30 PM GEOPHYSICAL ENGINEER EPIC results best viewed via link to PDF [facility] Giulia Shah Laboratory of [place] [address] Note to Patients: This report may contain [...] details. SURGICAL PATHOLOGY REPORT FINAL Patient Name: JIE CRUZ Gender: F : 1960 (Age: 63) Address: [address] [place] [id number] Hospital #: [id number] Taken:01/20/2024 Received:01/23/2024 Reported: 01/24/2024 Patient Type: [facility] SPECIMEN Service: Obstetrics Location: Physician(s): [...] Surgical Pathology and Flow Cytometry Departments at [facility] as part of an ongoing quality assurance technician program and in compliance with federally mandated [...] Surgical Pathology and Flow Cytometry Departments of [facility]. It has not been cleared or approved by the U. S. Food and Drug Administration. IMAGES AND SCANNED DOCUMENTS, IF INCLUDED, ONLY VIEWABLE IN PDF VERSION OF REPORT us Johana Fitzpatrick MD LAB PATHOLOGY ORDERABLES Final Result Performing Organization Address City/State/[facility] Co de Phone Number PATHOLOGY [facility] 3rd Floor [place], [place] [phone] from Last 3 Months Insurance [facility] PL[facility] Care Teams Supervisor Fusing Room Relationship Specialty Start Date End Date Constantin Lima MD [address] [place] [address] PCP - General Obstetrics and Gynecology 05/09/23
--- OUTSIDE RECORDS SUMMARY | 2024-04-02 10:26 | XMS_ITS | Referral Summary ---
Author Organization [facility] Address [address] [place] [address] Care Team Providers Care Hotel Maintenance Worker Name Role Phone Constantin Lima MD Primary Care Provider [phone] Encounters Date Type Department Care Team Description 03/19/2024 12:05 AM ROD BUSTER - 03/19/2024 11:59 PM ROD BUSTER Hospital Encounter [facility] [employer] [address] [place] [address] Discharge Disposition: Discharge to home or self care 03/19/2024 - 03/19/2024 11:59 PM ROD BUSTER Hospital Encounter [facility] [employer] [address] [place] [address] Discharge Disposition: Discharge to home or self care 01/26/2024 Telephone [facility] Obstetrics and Gynecology [address] [place] [address] 13th [place] [address] Ivania Galvan RN Test Results 01/20/2024 9:36 AM ROD BUSTER - 01/20/2024 11:59 PM ROD BUSTER Hospital Encounter [facility] PATHOLOGY [address] [place] [id number] Endometrial cancer (CMS/HCC) (HCC) Discharge Disposition: Discharge to home or self care 01/20/2024 1:30 PM ROD BUSTER Office Visit [facility] Obstetrics and Gynecology [address] [place] [address] 13th [place] [address] Johana Fitzpatrick MD Endometrial cancer (CMS/HCC) (HCC) (Primary Dx) from Last 3 Months Allergies No known active allergies Medications amLODIPine (NORVASC) 10 mg tabletIndicatio ns:hypertension Take 1 tablet (10 mg total) by mouth childhood development teacher before breakfast 4 Active PARoxetine (PAXIL) 20 [...] 07/08/2023 Assessment & Plan (01/20/2024 2:16 PM ROD BUSTER): 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 Not yet [...] on file Legal Sex Female 6:01 PM ROD BUSTER Gender Identity Female 05/10/2023 1:35 PM CDT Sexual Orientation Straight 05/10/2023 1: 35 PM CDT Last Filed Vital Signs Vital Sign Reading Time Taken Comments Blood Pressure 137/80 01/20/2024 1:54 PM ROD BUSTER Pulse 76 01/20/2024 1:54 PM ROD BUSTER Temperature 36.8 C (98.2 F) 01/20/2024 1:54 PM ROD BUSTER Respiratory Rate 16 01/20/2024 1:54 PM ROD BUSTER Oxygen Saturation 96% 01/20/2024 1:54 PM ROD BUSTER Inhaled Oxygen Concentration - - Weight 76.6 kg (168 lb 12.8 oz) 01/20/2024 1:54 PM ROD BUSTER Height 154.9 cm (5' 0.98 ) 01/20/2024 1:54 PM CS T Body Mass Index 31.91 01/20/2024 1:54 PM ROD BUSTER Plan of Treatment Not on file Procedures Procedure Name Priority Date/Time Associated Diagnosis Comments XR TRANSFER OF OUTSIDE FILMS Routine 03/19/2024 12:05 AM ROD BUSTER XR TRANSFER OF OUTSIDE FILMS Routine 03/19/2024 12:00 AM ROD BUSTER SURGICAL PATHOLOGY Routine 01/20/2024 12 :00 AM ROD BUSTER Endometrial cancer (CMS/HCC) (HCC) from Last 3 Months Results * XR Outside Reference (03/19/2024 12:05 AM ROD BUSTER) Narrative ARELY_[email or web address] - 03/30/2024 9:37 AM ROD BUSTER This order has been auto-finalized and does not contain a result. us Provider Transcribed Order IMG XR PROCEDURES Fin al Result [email or web address] * XR Outside Reference (03/19/2024 12:00 AM ROD BUSTER) Narrative [email or web address] - 03/30/2024 9:20 AM ROD BUSTER This order has been auto-finalized and does not contain a result. us Provider Transcribed Order IMG XR PROCEDURES Fin al Result [email or web address] * Surgical pathology (01/20/2024 12:00 AM ROD BUSTER) Tissue (Vagina, Biopsy) 01/20/2024 01/23/2024 4:19 AM ROD BUSTER Narrative PATHOLOGY [facility] - 01/24/2024 12:30 PM ROD BUSTER EPIC results best viewed via link to PDF [facility] Giulia Shah Laboratory [place] [address] Note to Patients: This report may contain [...] Gender: F : 1960 (Age: 63) Address: [address] [place] [address] [facility] #: [id number] Taken:01/20/2024 Received:01/23/2024 Reported: 01/24/2024 Patient Type: [facility] SPECIMEN Service: Obstetrics Location: Physician(s): Johana [...] Surgical Pathology and Flow Cytometry Departments at [facility] as part of an ongoing personnel quality assurance auditor program and in compliance with federally mandated [...] Surgical Pathology and Flow Cytometry Departments of [facility]. It has not been cleared or approved by the U. S. Food and Drug Administration. IMAGES AND SCANNED DOCUMENTS, IF INCLUDED, ONLY VIEWABLE IN PDF VERSION OF REPORT Johana Fitzpatrick MD LAB PATHOLOGY ORDERABLES Final Result PATHOLOGY [facility] 3rd Floor [place], [place] [phone] from Last 3 Months Insurance [facility] CHO[facility] PLUS Care Teams Hotel Maintenance Worker Relationship Specialty Start Date End Date Constantin Lima MD [address] [place] [address] PCP - General Obstetrics and Gynecology 05/09/23
--- OUTSIDE RECORDS SUMMARY | 2024-04-02 10:26 | XMS_ITS | CONTINUITY OF CARE DOCUMENT ---
Author Name dickson forman Address Unknown Organization [facility] Address [address] [facility] [address] [place] [address] Phone [phone] Care Team Providers Care Solutions Sales Consultant Name Role Phone Honorio Tirado MD Unavailable [phone] FILIPPO ESTEVES MD Unavailable [phone] FILIPPO ESTEVES MD Unavailable [phone] PROBLEMS Condition Status Date Provider Notes Cardiac murmur active Honorio Tirado MD Diabetes mellitus? active Honorio Tirado MD Tobacco abuse active Honorio Tirado MD Hypertriglyceridemia active Honorio Tirado MD Hypertension active Honorio Tirado MD Cardiology examination active Honorio Tirado MD ENCOUNTERS Date Type Provider Location Encounter Diag nosis 10/30 - 10/30 In-person encounter Office Visit Honorio Tirado MD [facility] Cardiac murmur 05/01 - 05/01 In-person encounter Office Visit Honorio Tirado MD [facility] 02/14 - 02/14 In-person encounter Office Visit Honorio Tirado MD [facility] Cardiology examinationHypertensionHypertriglyceridemiaTobacco abuseDiabetes mellitus? VITAL SIGNS [...] oximetry 99 % weight E&M 164 [lb_av] Idrsi Sandra y ALLERGIES Allergy Name Onset Date [...] mouth once a day Honorio Tirado MD rosuvastatin 5 mg tablet active [...] Payer name Policy type / Coverage type [place] [employer] Commercial insurance co [facility] [id number] ADVANCE DIRECTIVES Name Date DISCUSSED - NO [...] Tirado MD Cardiology: A 1c is 5.4% Hoonrio Tirado MD Cardiology:The Patient was reenc ouraged [...]
== END 2024-04-02 09:36 | disposition home or self-care (01) ==
PROVIDERS: PCP Emergency Medicine; Visit Provider Emergency Medicine
DX: Z12.2 Encounter for screening for malignant neoplasm of respiratory organs (principal); Z87.891 Personal history of nicotine dependence
CPT/HCPCS: 71271

== ENCOUNTER 2024-04-14 16:12 | Emergency (ER) | payer OTHER, SELFPAY ==
--- OUTSIDE RECORDS SUMMARY | 2024-04-14 16:14 | XMS_ITS | Data Portability ---
Author Organization [facility] [place] Address [address] [place] [address] [place] [address] Care Team Providers Care Dispatch Officer Name Role Phone FILIPPO ESTEVES Primary Care [...] recorded. Lab test, urine 2023 024 [address] [place], [address], [place], [address], 12:16:28 Referral None recorded. Procedures None recorded. Surgeries None recorded. Imaging US, pelvis 2023 024 pnoce [place], [address], [address], [place], [address], 18:56:54 US, transvagina l 2023 024 ponce [place], [address], [address], [place], [address], 18:56:54 US, pelvis, complete 2023 024 LEDY [place], [address], [address], [place], [address], 05:01:14 Medication Orders None recorded. Patient TargetsNo [...] t Case: [id number] Autho christina fored Provi bonifacio: Fanny Kaiser, VETERANS' COUNSELOR Colle cted: 03/07 1456 Order ing Locat [...] patie nt consi derat ions. Not Available [facility] (Lab) [address], [place], [address], 03/10/2023 14:05:46 03/07/19 24 03/07/2023 TRICH OMONA S VAGIN OWEN (RRNA ) trichomonas vaginalis ribosomal RNA (rrna) Negati ve negati ve Not Available [facility] (Lab) [address], [place], [address], 03/10/2023 14:05:47 03/07/19 24 03/07/2023 CT/GC (RICH) , THINP REP VIAL chlamydia trachomatis, PCR Negati ve negati ve Not Available [facility] (Lab) [address], [place], [address], 03/10/2023 14:05:48 03/07/19 24 03/07/2023 CT/GC (RICH) , THINP REP VIAL neisseria gonorrhoeae, PCR Negati ve negati ve Not Available [facility] (Lab) [address], [place], [address], 03/10/2023 14:05:48 03/21/19 24 03/21/2023 SURGI MAURICIO PATHO LOGY surgical pathology SEE RESULT S BELOW ADDEN DUM: At the reque st of Maye Placido , the slide s were sent out for addit ional consu ltati on at [facility] rsity [address], [place] [address] and revie wed by Johana cummins MD. The compl ete repor t has been scann ed into [facility]. Adden dum elect musa perry by [...] to stain posit ively with ER and SC. A p53 immun ostai n shows conchita [...] ochem istry was perfo rmed on a [place] taine r with the follo wing monoc [...] Contr ols Verif ied: Yes Estro gen Tank Setter tor (ER) Statu s: Posit katty Perce ntage of Cells with Nucle ar Posit ivity : 50 % [place] Inten sity of Stain ing: Stron g Proge stero ne Tank Setter tor (PgR) Statu s: Posit katty Perce ntage of Cells with Nucle ar Posit ivity : 25 % [place] ge Inten sity of Stain ing: Stron [...] ed by Jeffery Hahn on Not Available [facility] (Lab) [address], [place], [address], 05/11/2023 11:55:33 03/21/19 24 03/21/2023 pregn cyndee test, urine HCG negati ve Not Available [facility] [address], [place], [address], 03/21/2023 12:05:51 03/14/19 24 03/14/2023 US, pelvi s No observ ation record ed. [email or web address] [place] [address], [place], [address], 03/14/2023 14:42:19 03/14/19 24 03/14/2023 US, trans vagin al No observ ation record ed. [email or web address] [place] [address], [place], [address], 03/14/2023 14:42:08 03/14/19 24 03/14/2023 US, pelvi s No observ ation record ed. [email or web address] [address], [place], [address], 03/21/2023 10:24:41 Result Notes None recorded. Problems Name Problem SNOMED Code Status Onset Date Resolution Date Notes Provider Name and Address Organization Details Recorded Time Hypertensive disorder 95940233 Active 2023 Ashleigh smith, [facility] 4 10:34:05 Mixed anxiety and depressive disorder 161698696 Active 2023 Ashleigh smith, [facility] 4 10:34:28 Problem Notes None recorded. Procedures Surgical History Date Name Laterality Status Provider Name and Address Organization Details Recorded Time 024 Colposcopy completed Constantin Lima MD [address], [place], [address], [facility] 03/21/2023 12:19:03 024 Endometrial Biopsy completed Constantin Lima MD [address], [place], [address], [facility] 03/21/2023 12:16:12 024 Colposcopy completed Ashleigh Brower [facility] 03/28/2023 10:39:18 024 Colposcopy completed Luz Bolaños [facility] 03/21/2023 10:08:47 024 Endometrial Biopsy completed Luz Bolaños [facility] 03/21/2023 10:08:56 024 Date of Last Mammogram completed [facility] 03/07/2023 10:35:58 993 Cholecystectomy completed [facility] 03/07/2023 10:42:08 988 Caesarean Section completed [facility] 03/07/2023 10:41:55 986 Caesarean Section completed [facility] 03/07/2023 10:41:51 979 termination of completed Ashleigh Brower [facility] 03/28/2023 10:43:31 976 tonsilectomy/adeno ids completed [facility] 03/07/2023 10:42:23 Imaging Results Imaging Date Name Status LastModified by Organization Details LastModified Time 03/14/2023 US, pelvis completed [email or web address] [facility] [address], [place], [address], 03/14/2023 14:42:19 03/14/2023 US, transvaginal [email or web address] [address], [place], [address], 03/14/2023 14:42:08 03/14/2023 US, pelvis completed [email or web address] [address], [place], [address], 03/21/2023 10:24:41 Procedure Notes None recorded. Medical [...] Updated DateTime 4 154.94 cm 30.8 kg/m2 30058.5 6 g 151 mm[Hg] 82 mm[Hg] 142 mm[Hg] 80 mm[Hg] Gale Phoenix [facility] 4 11:00:31 Date Recorded Body height Body mass index (BMI) Body weight Systolic blood pressure Diastolic blood pressure Provider Name and Address Organization Details Last Updated DateTime 03/21/2023 154.94 cm 30.8 kg/m2 50946.56 g 149 mm[Hg] 81 mm[Hg] Luz Bolaños [facility] 4 10:08:36 Date Recorded Body height Body mass index (BMI) Body weight Systolic blood pressure Diastolic blood pressure Provider Name and Address Organization Details Last Updated DateTime 03/28/2023 154.94 cm 30.4 kg/m2 33785.37 g 128 mm[Hg] 91 mm[Hg] Ashleigh Brower [facility] 4 10:33:42 Social History Question Answer Notes LastModified by Organizat ion Details LastModified Time Tobacco Smoking Status Current Every Day Smoker Gale Alban smith, [facility] 03/07/2023 10:41:25 What Is Your Level Of Alcohol Consumption? None Information not available 03/07/2023 Are You Blind Or Do You Have Difficulty Seeing? No [email or web address] Information n ot available 03/28/2023 In The [...] Do You Have Serious Difficulty Hearing? No [email or web address] Information not available 03/28/2023 What Type Of Diet Are You Following? REGULAR [email or web address] Information n ot available 03/28/2023 Do You Use Your Seat Belt Or Car Seat Routinely? Yes [email or web address] Information not available 03/28/2023 Do You Have Smoke And Carbon Monoxide Detectors In Your Home? Yes [email or web address] Information not available 03/28/2023 Do You Feel Stressed (tense, Restless, Nervous, Or Anxious, Or Unable To Sleep At Night)? [id number] [email or web address] Information not available 03/28/2023 Do You Use Any Illicit Or Recreational Drugs? No Information not available 03/07/2023 Do You Use Sunscreen Routinely? Yes [email or web address] Information not available 03/28/2023 Sex: Unknown Functional Status Question Answer Note LastModified by Organizat ion Details LastModified Time Do you have difficulty walking or climbing stairs? No [email or web address] Information not available 03/28/2023 Are you able to walk? YESWOREST [email or web address] Information not available 03/28/2023 Are you able to care for yourself? Yes Information not available 03/28/2023 Do you have difficulty dressing or bathing? No [email or web address] Information not available 03/28/2023 What is your exercise level? Occasional [email or web address] Information not available 03/28/2023 Mental Status None recorded. Family History Relationship Description Onset Age of this Age Resolved Age Notes LastModified by Organization Details LastModified Time Mother Malignant tumor of colon Not available 2023 10:40:56 Medical History Condition Response Allergies (Food, seasonal, environmental ) N Other N Drug/Latex Allergies/Reactions N Breast Cancer N Blood Transfusion N Lung Disease N Dermatologic Disorders Y Defects or Inherited Disease N Breast Problem N Gestational Diabetes N Hematologic disorders N Anesthesia Complications N History of STI N Deep Vein Thrombosis N Polycystic ovary syndrome N Anxiety Disorder Y Autoimmune disease N Arthritis N Polyps N Infertility N History of abnormal pap Y Acid Reflux (GERD) N Cancer N Varicosities N Stroke N Neurologic/Epilepsy N Endometriosis N High Cholesterol Y Headaches N Fibromyalgia N Kidney Disease N Heart Problems N Thyroid Problems N Kidney or Bladder Problems N GI Problems N Eating Disorder [...] SNOMED-CT Code Diagnosis ICD10 Code Diagnosis Note [id number] ALICIA Caro [place] [address] [address] 03/07/2023 09:59:23 03/07/2023 14:19:17 Gynecologic examination 35244947 Z01.419 WWEpap updatedgc/ ct/trich testing added to papmammogr am UTD/PCPnee d colonoscop y - has order from PCP, encouraged to scheduleBP precaution s discussed, encouraged continue f/u with PCProutine labs UTD/PCP Take Calcium with Vitamin D daily.Do monthly self breast exams.It is advised to get annual flu shot in the fall and she could obtain at [facility] or [facility] clinic. If you haven't received the Tdap [...] respond to this email Postmenopa usal bleeding 58748157 N95.0 Discussed postmenopa usal bleeding which warrants further evaluation pelvic u/s ordereddis cussed need for EMB once u/s reviewed Time spent in visit is a total of 35 mins with at least 50% of visit consisting of counseling and review of plan of care. [id number] Lurdes Allen [place] [address] [address] 03/14/2023 09:59:31 03/14/2023 11:13:16 Postmenopausal bleeding 95175878 N95.0 [id number] Constantin Lima MD [place] [address] [address] 03/21/2023 09:49:06 03/21/2023 12:23:29 Screening procedure 64254148 Z13.9 Abnormal c ervical Papanicolaou smear 872982486 R87.619 Postmenopa usal bleeding 61096748 N95.0 Colposcopi c examinatio n was performed for cervical dysplasia or abnormal Pap smear rather. Endometria l biopsy was performed without complicati on. She tolerated these well. Colposcopi c examinatio n appeared normal. It was not satisfacto ry however. [id number] Constantin Lima MD [place] [address] [address] 03/28/2023 09:54:39 03/28/2023 11:28:58 Primary endometrioid carcinoma of endometrium 594185452 C54.1 62-year-ol d female who presents for [...] Member ID Guarantor Name 03/07/2023 1 R [id number] Jie Anthony [id number] Jie Anthony 03/14/2023 1 UMR [id number] Jie Anthony [id number] Jie Anthony 03/21/2023 1 UMR [id number] Jie Anthony [id number] Jie Anthony 03/28/2023 1 R [id number] Jie Anthony [id number] Jie Anthony Notes Date Note Type Note Provider Name and Address Organization Details Recorded Time 03/07/2023 text/html Annual Leaf Size Picker Post-MenopausalReport ed bypatient.Menopausal Symptoms:no menopausal symptoms; normal [...] from PCP ALICIA Caro [address], [place], [address], [facility] 03/07/2023 14:07:36 03/21/2023 text/html 62-year-old maryanne cummins with postmenopausal bleeding and abnormal Pap smear. Presents for colposcopy, ECC, and endometrial biopsy. The procedure has been explained to her in detail. She understands risks, benefits, and alternatives. She is completed the informed consent process. Constantin Lima MD [address], [place], [address], [facility] 03/21/2023 12:19:08 03/28/2023 text/html 62-year-old maryanne [...] through her treatment. We spent 20 minutes [id number]. More than 50% was counseling. She will follow-up as needed. Constantin Lima MD [address], [place], [address], [facility] 03/28/2023 11:27:24 OBGyn Episode Ob Episode Information Episode Created Date Number of Fetuses Patient Bloodtype Patient rh Status Prepregnancy Weight lbs Domestic Partner Domestic Partner Phone Father Name Sustainability Communicator Status 03/07/19 24 1 CLOSED Fetus Data First Name Last Name Admitted to NICU Weight (g) Sex Living Outcome Pediatric Complications Fetus ID Race Codes Race Delivery Type , Induced 61212 Sanya Calculation Initial Sanya Date Initial Exam [...] Domestic Partner Domestic Partner Phone Father Name Sustainability Communicator Status 03/07/19 24 1 CLOSED Fetus Data First Name Last Name Admitted to NICU Weight (g) Sex Living Outcome Pediatric Complications Fetus ID Race Codes Race Delivery Type 3288.54 2 F Full Term 41691 Repeat Sanya Calculation Initial Sanya Date Initial [...] Domestic Partner Domestic Partner Phone Father Name Sustainability Communicator Status 03/07/19 24 1 CLOSED Fetus Data First Name Last Name Admitted to NICU Weight (g) Sex Living Outcome Pediatric Complications Fetus ID Race Codes Race Delivery Type 4110.45 0704 M Full Term 45593 Primary Sanya Calculation Initial Sanya Date Initial [...]
--- OUTSIDE RECORDS SUMMARY | 2024-04-14 16:14 | XMS_ITS | Continuity of Care Document ---
Author Name [facility] Organization [facility] Care Team Providers Care Underliner Name Role Phone [facility] Unavailable Unavailable Encounters [...] ADM Date DC Date Status Disposition Source [facility] Outpatient Encounter [id number] 08/14 [facility] Andersen
--- OUTSIDE RECORDS SUMMARY | 2024-04-14 16:14 | XMS_ITS | CONTINUITY OF CARE DOCUMENT ---
Author Name dickson forman Address Unknown Organization [facility] Address [address] [place] [address] Phone [phone] Care Team Providers Care Superintendent Marine Name Role Phone Honorio Tirado MD Unavailable FILIPPO ESTEVES MD Unavailable [phone] FILIPPO ESTEVES MD Unavailable [phone] PROBLEMS Condition Status Date Provider Notes Cardiology examination active Honorio Tirado MD Hypertension active Honorio Tirado MD Hypertriglyceridemia active Honorio Tirado MD Tobacco abuse active Honorio Tirado MD Diabetes mellitus? active Honorio Tirado MD Cardiac murmur active Honorio Tirado MD ENCOUNTERS Date Type Provider Location Encounter Diag nosis 10/30 - 10/30 In-person encounter Office Visit Honorio Tirado MD [facility] Cardiac murmur 05/01 - 05/01 In-person encounter Office Visit Honorio Tirado MD [facility] 02/14 - 02/14 In-person encounter Office Visit Honorio Tirado MD [facility] Cardiology examinationHypertensionHypertriglyceridemiaTobacco abuseDiabetes mellitus? VITAL SIGNS [...] Payer name Policy type / Coverage type [place] red libertarian ID [employer] Commercial insurance co [facility] [id number] ADVANCE DIRECTIVES Name Date DISCUSSED - NO [...]
--- OUTSIDE RECORDS SUMMARY | 2024-04-14 16:14 | XMS_ITS | Clinical Summary ---
Author Organization [facility] Address [address] [place] [address] Care Team Providers Care Social Media Community Manager Name Role Phone None, Provider MD Primary [...] patient's age to complete [place] [address] [employer] Care Teams Social Media Community Manager Relationship Specialty Start Date End Date None, Provider, PCP - General 05/20/21
--- OUTSIDE RECORDS SUMMARY | 2024-04-14 16:16 | XMS_ITS | Continuity of Care Document ---
Author Name [facility] Organization [facility] Care Team Providers Care Marketing Planner Name Role Phone [facility] Unavailable Unavailable Encounters [...] ADM Date DC Date Status Disposition Source [facility] Outpatient Encounter [id number] 08/14 [facility] Andersen
--- OUTSIDE RECORDS SUMMARY | 2024-04-14 16:17 | XMS_ITS | CONTINUITY OF CARE DOCUMENT ---
Author Name dickson forman Address Unknown Organization [facility] Address [address] [place] [address] Phone [phone] Care Team Providers Care Dry Room Attendant Name Role Phone Honorio Tirado MD Unavailable FILIPPO ESTEVES MD Unavailable [phone] FILIPPO ESTEVES MD Unavailable [phone] PROBLEMS Condition Status Date Provider Notes Cardiology examination active Honorio Tirado MD Hypertension active Honorio Tirado MD Hypertriglyceridemia active Honorio Tirado MD Tobacco abuse active Honorio Tirado MD Diabetes mellitus? active Honorio Tirado MD Cardiac murmur active Honorio Tirado MD ENCOUNTERS Date Type Provider Location Encounter Diag nosis 10/30 - 10/30 In-person encounter Office Visit Honorio Tirado MD [facility] Cardiac murmur 05/01 - 05/01 In-person encounter Office Visit Honorio Tirado MD [facility] 02/14 - 02/14 In-person encounter Office Visit Honorio Tirado MD [facility] Cardiology examinationHypertensionHypertriglyceridemiaTobacco abuseDiabetes mellitus? VITAL SIGNS [...] BY MOUTH ONCE DAILY IN THE MORNING Idrsi amlodipine 10 mg tablet active Take 1 [...] Payer name Policy type / Coverage type [place] red republican ID [employer] Commercial insurance co [facility] [id number] ADVANCE DIRECTIVES Name Date DISCUSSED - NO [...] every evening or at bedtime daily Honorio Tiraod MD Date Name Complete Echo LIPID PANEL [...]
[2024-04-14 16:25] VITALS: BP 167/85; PULSE 74; RESP 20; TEMP 36.4; O2SAT 100
--- NOTE | 2024-04-14 16:40 | ED_ITS ---
HPI - Extremity Problem General Chief complaint: Extremity Problem,Nontraumatic Stated complaint: LT Hip Pain Time Seen by Provider: 04/14/24 16:14 Source: patient Mode of arrival: ambulatory Limitations: no limitations History of Present Illness HPI Narrative: 63-year-old female presents to [facility] with complaints of pain to her left lower back and left hip for the past 2 weeks. Patient reports that she has a history of an old right hip fracture and is seeing Orthopedics on Tuesday for additional x-rays and evaluation. Patient reports that she has been using a cane for ambulation. Patient reports that she cannot remember if she fell on her left hip or not. Patient reports he she might have slipped and fell on the ice 1-2 months ago but is not 100% sure. Patient reports that she has been taking [id number]-ous-[id number] Tylenol using heat for the pain. Patient reports her primary care provider does not want her taking ibuprofen due to blood pressure medication. Patient denies numbness, tingling, swelling, bruising or erythema. Patient reports increased pain with range of motion or ambulation. MD Complaint: joint paint Onset (ago): week(s) (2) Quality: aching Relieving factors: rest and other (heat) Associated symptoms: denies other symptoms Related Data Home Medications ?Medication ?Instructions ?Recorded ?Confirmed ?Last Taken ?Type amlodipine 10 mg tablet 10 mg PO DAILY 10/05/23 10/05/23 Unknown History hydrochlorothiazide 25 mg tablet 25 mg PO DAILY 10/05/23 10/05/23 Unknown History paroxetine HCl 20 mg tablet 20 mg PO DAILY 10/05/23 10/05/23 Unknown History rosuvastatin 5 mg tablet 5 mg PO HS 10/05/23 10/05/23 Unknown History Allergies Allergy/AdvReac Type Severity Reaction Status Date / Time No Known Allergies Allergy Verified 04/14/24 16:18 Review of Systems Constitutional: Constitutional: Denies chills, Denies fatigue, Denies fever(s) and Denies weakness ENT: Denies vertigo, Denies dizziness and Denies nasal congestion Respiratory: Respiratory: Denies cough, Denies dyspnea and Denies wheezing Gastrointestinal: Gastrointestinal: Denies diarrhea, Denies nausea and Denies vomiting Musculoskeletal: Comments: Left low back pain and left hip pain Integumentary/Breasts: Skin/Breast: Denies erythema and Denies rash Neurologic: Denies dizziness, Denies syncope and Denies headache(s) PMFSH Comments At time of signature, I agree with nursing past medical, surgical, social and family history. There is no relevant family history pertinent to the presenting complaint. Exam Const: General: healthy appearing and no acute distress Nutritional Appearance: well nourished Orientation/consciousness: patient oriented x3 Limitations: no limitations HENMT: Head: normal to inspection Throat: posterior oropharynx normal and uvula midline Eyes: Conjunctivae: conjunctivae normal Neck: Neck: normal visual inspection Resp: Effort & Inspection: normal respiratory effort Auscultation: clear to auscultation bilaterally, no crackles, no rales, no rhonchi and no wheezes Cardio: Rate: regular rate Rhythm: regular rhythm Heart sounds: no murmurs Skin: General skin exam: normal color Neuro: General: patient oriented x3, moves all extremities and no meningeal signs Cranial nerves: Yes Nystagmus not present Speech: normal speech Extrem: General: normal to inspection and no clubbing, cyanosis or edema Other: No swelling, erythema or open wounds noted to lower back or left hip. There is no pain to spine upon palpation. There is mild pain to left hip region upon p alpation. Patient declines x-ray at this time. Psych: Mental Status: mental status grossly normal Affect: normal affect Attitude: cooperative Course Course Level of Care: Express Care Visit Vital Signs Vital signs: Vital Signs Temperature 36.4 C L 04/14/24 16:25 Pulse Rate 74 04/14/24 16:25 Respiratory Rate 20 04/14/24 16:25 Blood Pressure 167/85 H 04/14/24 16:25 Pulse Oximetry 100 04/14/24 16:25 Oxygen Delivery Room Air 04/14/24 16:25 Temperature 36.4 C L 04/14/24 16:25 Pulse Rate 74 04/14/24 16:25 Respiratory Rate 20 04/14/24 16:25 Blood Pressure 167/85 H 04/14/24 16:25 Pulse Oximetry 100 04/14/24 16:25 Oxygen Delivery Room Air 04/14/24 16:25 MDM - Extremity (Nontraumatic) MDM Narrative Medical decision making narrative: Patient declines hip x-ray at this time. Patient reports that she is seeing orthopedics this week and would like to wait and get x-rays completed at that time. Encouraged patient continue using Tylenol as needed. Encouraged patient to take muscle relaxer as prescribed. Educated patient follow-up with primary care provider to have blood pressure evaluated. Encouraged patient proceed to the emergency room if symptoms worsen. I am concerned that patient's pain is likely due to the fact that patient is using a cane incorrectly to help with her chronic right hip pain. Differential Diagnosis Differential diagnosis: Likely gout, cellulitis and other (Strain, sprain) Critical Care Time Critical Care Time Critical Care Time: No Discharge Plan Discharge Clinical Impression: Low back pain, Acute pain of left hip Patient Disposition: Home, Self-Care Condition: Stable Instructions: Acute Low Back Pain (ED), Hip Pain (ED) Additional Instructions: Follow-up with orthopedics this week as scheduled Follow-up with primary care provider as soon as possible to follow-up on blood pressure Do not drive, drink alcohol or work while taking muscle relaxers as medication may make you tired Continue Tylenol as needed Proceed to the emergency room if symptoms worsen Patient Language: Angolan Prescriptions: New methocarbamol 500 mg tablet 500 mg PO BID Qty: 20 0RF No Action amlodipine 10 mg tablet 10 mg PO DAILY paroxetine HCl 20 mg tablet 20 mg PO DAILY hydrochlorothiazide 25 mg tablet 25 mg PO DAILY rosuvastatin 5 mg tablet 5 mg PO HS Follow-up/Referrals: Lam Doss MD [Primary Care Provider] - Time of Disposition: 16:48
== END 2024-04-14 17:02 | disposition home or self-care (01) ==
PROVIDERS: Emergency Provider Nurse Practitioner Family; PCP Emergency Medicine
DX: M54.50 Low back pain, unspecified (principal); M25.552 Pain in left hip; I10 Essential (primary) hypertension; E78.00 Pure hypercholesterolemia, unspecified; K21.9 Gastro-esophageal reflux disease without esophagitis; M19.90 Unspecified osteoarthritis, unspecified site; F41.9 Anxiety disorder, unspecified; F32.A Depression, unspecified
CPT/HCPCS: 99213; G0463